=== PATIENT | female | born 1970 | race Caucasian/White ===

== ENCOUNTER → 2017-07-16 | Outpatient (CLI) | payer BC ==
[~2017-07-16] MED LIST: AMOX500C3 PO; CTF50 PO; DICL100T PO; EFFSR75 PO; ESZO1TAB20 PO; GLC500; PRT/40 PO; VALA1TAB31 PO; VENL1CAP92 PO
--- NOTE | 2017-07-16 12:55 | DIAGNOSTIC IMAGING REPORT ---
RENAL ULTRASOUND CLINICAL HISTORY: Lower back pain. Right flank pain. COMPARISON STUDY: Renal ultrasound May 19, [address] of the abdomen and pelvis February 22, 2015. TECHNIQUE: Sonography of the kidneys and the urinary bladder was performed. FINDINGS: The right kidney measures 11.1 cm in maximal dimension and the left measures 11.2 cm. There is no hydronephrosis. Note is again made of a 1.8 cm cyst within the right kidney. No calculi are identified by sonography. Both ureteral jets were identified. IMPRESSION: 1. No hydronephrosis. 2. 1.8 cm right renal cyst. Electronically signed by: López Brownlee M.D. 07/16/2017 12:54 PM Dictated Date/Time: 07/16/2017 12:52 PM
== END | disposition home or self-care (01) ==
LOC: C.ULTRBC 12:17
PROVIDERS: ATTEND Nurse Practitioner
DX: M54.5 Low back pain (principal); N28.1 Cyst of kidney, acquired

== ENCOUNTER 2017-08-28 20:08 | Emergency (ER) | payer BC ==
[~2017-08-28] VITALS: Ht 167.6 cm; Wt 92.7 kg
[~2017-08-28 20:08] MED LIST changes: -AMOX500C3 PO; -CTF50 PO; -EFFSR75 PO; -ESZO1TAB20 PO; -PRT/40 PO; -VALA1TAB31 PO
[2017-08-28 20:13] VITALS: TEMP 36.7; Ht 167.6 cm; Wt 92.7 kg
[2017-08-28] MEDS ORDERED: XYLOCAINE 1%/SOD BICARB 20 ML VIAL INFIL ONE (20:45)
[2017-08-28] MEDS ORDERED: DIPHTHERIA/TETANUS/PERTUSSIS 0.5 ML SYR/VIAL IM. ONE (20:45)
[2017-08-28] MEDS ORDERED: EFFSR75 PO (21:02)
[2017-08-28] MEDS ORDERED: PRT/40 PO (21:02)
[2017-08-28] MEDS ORDERED: CTF50 PO (21:02)
[2017-08-28] MEDS ORDERED: AMOX500C3 PO (21:02)
[2017-08-28] MEDS ORDERED: VALA1TAB31 PO (21:02)
[2017-08-28] MEDS ORDERED: ESZO1TAB20 PO (21:02)
--- NOTE | 2017-08-28 21:02 | DIAGNOSTIC IMAGING REPORT ---
L FINGER(S) MIN 2 VIEWS ROUTINE HISTORY: 47 years-old Female L index finger lac/hammer blunt force trauma acute left second finger laceration status post trauma. COMPARISON: None available TECHNIQUE: 3 views of the left second finger. FINDINGS: There is mild soft tissue swelling of the second digit without acute fracture, dislocation or opaque foreign body. Focal skin defect along the volar aspect of the digit at the level of the DIP joint suggests laceration. No significant degenerative changes. IMPRESSION: Mild soft tissue swelling without acute bony abnormality or opaque foreign body. The above report was generated using voice recognition software. It may contain grammatical, syntax or spelling errors. Electronically signed by: Pradip Hurt M.D. 08/28/2017 9:00 PM Dictated Date/Time: 08/28/2017 8:58 PM
[2017-08-28 21:53] VITALS: BP 121/81; PULSE 62; O2SAT 96
--- NOTE | 2017-08-28 23:10 | EMERGENCY ROOM VISIT NOTE ---
History First contact with patient: 20:25 Chief Complaint: LACERATION/CUT (SUT/DERMABOND) Stated Complaint: LACERATION TO LEFT HAND, 2ND DIGIT Nursing Triage Summary: pt c/o lac to left index finger, cut it on a hammer and a nail History of Present Illness The patient is a 47 year old female who presents to the Emergency Room with complaints of a laceration to her left index finger after hitting her hand with a hammer. The patient denies any pain extending into the hand or wrist region. The patient is [id number], and rates her discomfort a 1 out of 10. Tetanus immunization is unknown. Review of Systems 10 system review was performed and was negative except for pertinent positives and negatives as indicated in history of present illness Past Medical/Surgical History Medical Problems: (1) Kidney stone (2) UTI (urinary tract infection) Family History Cancer Marfan's syndrome Social History Smoking Status: Never Smoker Alcohol Use: none Marital Status: Housing Status: lives with family Occupation Status: employed Current/Historical Medications Scheduled Amoxicillin (Amoxil), 500 MG PO TID Eszopiclone (Eszopiclone), 2 MG PO HS Pantoprazole (Pantoprazole Sodium), 40 MG PO DAILY Valacyclovir Hcl (Valtrex), 1 GM PO TID Venlafaxine Hcl (Effexor Extended Rel), 75 MG PO DAILY Scheduled PRN Diclofenac Potassium (Diclofenac Potassium), 50 MG PO TID PRN for Pain Physical Exam Vital Signs Date Time Temp Pulse Resp B/P (MAP) Pulse Ox O2 Delivery O2 Flow Rate FiO2 08/28/17 21:53 62 18 121/81 96 08/28/17 20:13 36.7 62 18 123/73 97 Room Air Physical Exam CONSTITUTIONAL: Healthy and well nourished. Alert and oriented X 3 with positive affect. Patient does not appear in any acute distress. HEENT: Normocephalic, atraumatic. Pupils equal, round and reactive. NECK: Full active range of motion without discomfort. MUSCULOSKELETAL: Examination of the left index finger shows a 1 cm laceration over the volar DIP joint. The patient has difficulty with range of motion of the joints. There is mild to moderate edema. Nail plate is not involved. Collateral ligaments of the DIP and PIP joints are intact. Capillary refill is less than 2 seconds. INTEGUMENTARY: No rash or other significant dermatologic conditions noted. NEUROLOGIC: Left index fingertip is sensory intact. Medical Decision & Procedures ER Provider Diagnostic Interpretation: My interpretation of left index finger x-rays does not show any acute fractures or dislocation. Radiologist report is as follows: L FINGER(S) MIN 2 VIEWS ROUTINE HISTORY: 47 years-old Female L index finger lac/hammer blunt force trauma acute left second finger laceration status post trauma. COMPARISON: None available TECHNIQUE: 3 views of the left second finger. FINDINGS: There is mild soft tissue swelling of the second digit without acute fracture, dislocation or opaque foreign body. Focal skin defect along the volar aspect of the digit at the level of the DIP joint suggests laceration. No significant degenerative changes. IMPRESSION: Mild soft tissue swelling without acute bony abnormality or opaque foreign body. Medications Administered Medications (Trade) Dose Ordered Sig/Telma Route Start Time Stop Time Status Last Admin Dose Admin Diphtheria/ Pertussis/Tetanus Vacc (Adacel Inj) 0.5 ml ONCE ONCE IM. 08/28/17 20:45 08/28/17 20:46 DC 08/28/17 20:56 0.5 ML Procedure Laceration repair was performed under digital block anesthesia after receiving verbal consent from the patient. Using buffered 1% lidocaine without epinephrine, good digital block anesthesia was administered. The wound was then peripherally cleansed with iodine, then copiously pressure irrigated with normal saline. Exploration of the wound does not show any obvious injury or exposure to the underlying bone, joint capsule or tendons. The wound was then approximated using 5-0 nylon simple interrupted sutures. A bacitracin dressing was applied. The patient does have full flexor effort against resistance. ED Course Patient history and physical exam were performed. Nurse's notes were reviewed. Vital signs were reviewed and normal. The patient refused any analgesics. The patient was administered Adacel IM. X-rays of the left index finger were normal. Laceration repair was performed under digital block anesthesia. The patient was provided additional verbal and written wound care instructions. Ice and elevation for swelling. Ibuprofen and Tylenol as needed for pain. Suture removal in 12-14 days, or seek reevaluation sooner for any signs of infection. She was encouraged to contact orthopedics if she has persistent stiffness or noticeable weakness of flexor function of the finger, which is not present under digital block anesthesia. The patient was happy with plan of care , and voiced understanding of all discharge instructions. She denied any pain at the time of discharge. Medical Decision Medication Reconcilliation Current Medication List: was personally reviewed by me Blood Pressure Screening Patient's blood pressure: Normal blood pressure Impression Primary Impression: Laceration of left index finger Departure Information Referrals Janel Vick D.OSheron (PCP) Patient Instructions My [facility] Problem Qualifiers Primary Impression: Laceration of left index finger Encounter type: initial encounter Damage to nail status: without damage Foreign body presence: without foreign body Qualified Codes: S61.211A - Laceration without foreign body of left index finger without damage to nail, initial encounter
== END 2017-08-28 21:53 | disposition home or self-care (01) ==
LOC: C.EDB 20:09 → C.EDD 21:53
DX: S61.211A Laceration without foreign body of left index finger without damage to nail, initial encounter (principal); W27.8XXA Contact with other nonpowered hand tool, initial encounter

== ENCOUNTER → 2017-10-29 | Outpatient (CLI) | payer BC ==
[~2017-10-29] MED LIST changes: +AMOX500C3 PO; +CTF50 PO; -DICL100T PO; +EFFSR75 PO; +ESZO1TAB20 PO; -GLC500; +PANT40TA2 PO; +VALA1TAB31 PO; -VENL1CAP92 PO
--- NOTE | 2017-10-29 12:36 | DIAGNOSTIC IMAGING REPORT ---
MRI LEFT KNEE NO CONTRAST CLINICAL HISTORY: Left knee pain. History of psoriatic and osteoarthritis. COMPARISON STUDY: No previous studies for comparison. FINDINGS: Imaging was performed in the sagittal, coronal, and axial planes. There are no areas of marrow edema to indicate occult fracture or bone bruise. There is a small area of marrow edema beneath the level of the tibial spines. The patellar retinacular structures appear intact. The quadriceps and patellar tendons appear intact. The medial and lateral collateral ligaments appear intact. No meniscal tears are visualized. There is marked chondrosis involving the medial joint compartment. There is cartilaginous thinning involving the medial patellar facet. There is mild diffuse soft tissue edema. There is possible synovial hypertrophy. IMPRESSION: 1. No evidence of acute fracture or bone bruise 2. No evidence of cruciate or collateral ligament disruption 3. No evidence of meniscal tear 4. Marked chondrosis involving the medial joint compartment. Chondrosis involving the medial patellar facet. 5. Possible synovial hypertrophy Electronically signed by: Tom Paul M.D. 10/29/2017 12:34 PM Dictated Date/Time: 10/29/2017 12:27 PM
== END | disposition home or self-care (01) ==
LOC: C.MRI 11:07
PROVIDERS: ATTEND Family Medicine
DX: M25.562 Pain in left knee (principal); M11.262 Other chondrocalcinosis, left knee

== ENCOUNTER 2018-03-28 06:01 | Observation (INO) | payer BC ==
[2018-03-14 09:12] VITALS: BMI 33.0
--- NOTE | 2018-03-14 09:59 | PAT Medication Instructions ---
Service Date Mar 14, 2018. Current Home Medication List Acetaminophen (Tylenol), 1,000 MG PO PRN Aspirin (Aspirin Ec), 162 MG PO PRN Diclofenac Potassium (Diclofenac Potassium), 50 MG PO TID Eszopiclone (Lunesta), 2 MG PO HS Ibuprofen (Advil), 800 MG PO Q6H PRN for PRN Leflunomide (Arava), 10 MG PO QAM Oxycodone Ir (Roxicodone Ir), 5 MG PO Q4-6H Pantoprazole (Protonix), 20 MG PO HS Valacyclovir Hcl (Valtrex), 1 GM PO TID PRN for PRN Venlafaxine Hcl (Effexor Extended Rel), 75 MG PO HS Medication Instructions For Your Scheduled Surgery -Check with your surgeon for instructions: Aspirin (Aspirin Ec), 162 MG PO PRN Diclofenac Potassium (Diclofenac Potassium), 50 MG PO TID Ibuprofen (Advil), 800 MG PO Q6H PRN for PRN -Check with your prescriber for instructions for: Leflunomide (Arava), 10 MG PO QAM - Take the following medications the morning of surgery with a sip of water: Acetaminophen (Tylenol), 1,000 MG PO PRN (if needed, can be taken up to four hours before surgery) Oxycodone Ir (Roxicodone Ir), 5 MG PO Q4-6H (if needed, can be taken up to four hours before surgery) Valacyclovir Hcl (Valtrex), 1 GM PO TID PRN for PRN (if needed) - Take the following medications as scheduled the night before surgery: Acetaminophen (Tylenol), 1,000 MG PO PRN (if needed) Eszopiclone (Lunesta), 2 MG PO HS Oxycodone Ir (Roxicodone Ir), 5 MG PO Q4-6H (if needed) Pantoprazole (Protonix), 20 MG PO HS Valacyclovir Hcl (Valtrex), 1 GM PO TID PRN for PRN (if needed) Venlafaxine Hcl (Effexor Extended Rel), 75 MG PO HS If you have any questions please call us at [phone] or [phone] or [phone]
[2018-03-14 10:52] LABS: CREATININE 0.91 mg/dl (0.60-1.20); POTASSIUM 4.1 mmol/L (3.5-5.1)
--- NOTE | 2018-03-14 10:59 | DIAGNOSTIC IMAGING REPORT ---
CHEST 2 VIEWS ROUTINE CLINICAL HISTORY: Preoperative chest COMPARISON STUDY: No previous studies for comparison. FINDINGS: The cardiac and mediastinal contours are normal. There is no evidence of focal pulmonary consolidation. There is no evidence of failure. No pleural effusions are visualized.[ IMPRESSION: No active disease in the chest. Electronically signed by: Tom Paul M.D. 03/14/2018 10:58 AM Dictated Date/Time: 03/14/2018 10:58 AM
[2018-03-14 11:02] LABS: HEMATOCRIT 42.8 % (37-47); HEMOGLOBIN 14.7 g/dL (12.0-16.0); MEAN CELL VOLUME 87.3 fL (80-100); MEAN CORPUSCULAR HGB CONC 34.3 g/dl (32-36); MEAN PLATELET VOLUME 10.9 fL (7.4-10.4); PLATELET COUNT 259 K/uL (130-400); RED CELL DISTRIBUTION WIDTH CV 13.3 % (11.5-14.5); RED CELL DISTRIBUTION WIDTH SD 42.4 fL (36.4-46.3); WHITE BLOOD COUNT 5.92 K/uL (4.8-10.8)
[2018-03-14 11:05] LABS: BASO % 0.8 %; BASO ABS # 0.05 K/uL (0-0.2); EOS ABS # 0.12 K/uL (0-0.5); IG# 0.02 K/uL (0.00-0.02); LYMPH % 40.4 %; LYMPH ABS # 2.39 K/uL (1.2-3.4); MONO % 7.6 %; MONO ABS # 0.45 K/uL (0.11-0.59); NEUT % 48.9 %; NEUT ABS # 2.89 K/uL (1.4-6.5)
[~2018-03-28] VITALS: Ht 167.6 cm; Wt 93.0 kg
[2018-03-28] VITALS (17 sets, daily range): BP systolic 96–150; BP diastolic 62–81; PULSE 48–70; TEMP 36.4–36.7; O2SAT 95–100; Ht 167.6 cm; Wt 93.0 kg
[~2018-03-28 06:01] MED LIST changes: +ACET-1256 PO; +ACETAMINOPHEN 500 MG TAB PO SCH; -AMOX500C3 PO; +ASPI81TA28 PO; +CEFAZOLIN 2000MG IV PUSH 15 ML IV SCH; +CeleBREX 200 MG CAP PO SCH; +ESZO1TAB16 PO; -ESZO1TAB20 PO; +GABAPENTIN 900 MG PO SCH; +IBUP-1050 PO; +LACTATED RINGER'S 1000ML 1,000 ML IV SCH; +LEFL10TA PO; +OXYC1TAB3 PO; -PANT40TA2 PO; +PRT/20 PO
[2018-03-28] MEDS ORDERED: ASPI81TA28 PO (06:16)
[2018-03-28] MEDS ORDERED: BACITRACIN 50000 UNIT VIAL ONE (06:55)
[2018-03-28] MEDS ORDERED: DEXAMETHASONE SOD INJ 4 MG/ML VIAL ONE (06:56)
[2018-03-28] MEDS ORDERED: PROPOFOL IV EMULSION 10 MG/ML 20 ML VIAL ONE (06:56)
[2018-03-28] MEDS ORDERED: ONDANSETRON INJ 2 MG/ML 2 ML VIAL ONE (06:56)
[2018-03-28] MEDS ORDERED: FENTANYL CITRATE INJ 50 MCG/1 ML 2 ML VIAL ONE (06:57)
[2018-03-28] MEDS ORDERED: MIDAZOLAM HCL 1 MG/ML 2ML VIAL ONE (06:57)
--- NOTE | 2018-03-28 07:29 | History & Physical Bridge Note ---
H&P Re-Evaluation Bridge Note: I have examined the patient, reviewed the History & Physical and in the interval since the performance of the History & Physical I have noted the following changes of clinical significance: No changes noted
--- NOTE | 2018-03-28 07:31 | History and Physical ---
History & Physical Date March 28, 2018. Chief Complaint Neck and arm pain History of Present Illness The patient is a 48 year old female with complaints of neck and arm pain Past Medical/Surgical History Medical Problems: (1) Kidney stone (2) UTI (urinary tract infection) Additional History Hepatic Disease: No Endocrine Disorder: No Kidney Disease: No Hypertension: No Heart Disease: No Bleeding Tendencies: No Infectious Diseases: No Allergies Coded Allergies: Levofloxacin (Unverified Allergy, Unknown, ANAPHYLAXIS, 03/28/18) Nickel (Verified Allergy, Unknown, WATER BLISTERS,RED RASH-ALL METALS EXCEPT SILVER,GOLD, 03/28/18) Home Medications Scheduled Acetaminophen (Tylenol), 1,000 MG PO PRN Aspirin (Aspirin Ec), 81 MG PO DAILY Diclofenac Potassium (Diclofenac Potassium), 50 MG PO TID Eszopiclone (Lunesta), 2 MG PO HS Leflunomide (Arava), 10 MG PO QAM Pantoprazole (Protonix), 20 MG PO HS Venlafaxine Hcl (Effexor Extended Rel), 75 MG PO HS Scheduled PRN Ibuprofen (Advil), 800 MG PO Q6H PRN for PRN Oxycodone Ir (Roxicodone Ir), 5 MG PO Q4-6H PRN for Pain Valacyclovir Hcl (Valtrex), 1 GM PO TID PRN for PRN Physical Examination Skin: warm/dry, no rash Eyes: normal inspection, EOMI, sclerae normal ENT: normal ENT inspection, pharynx normal Head: normocephalic, atraumatic Neck: supple, no adenopathy, trachea midline Respiratory/Chest: lungs clear, normal breath sounds, no respiratory distress Cardiovascular: regular rate, rhythm, no edema, no murmur Abdomen / GI: normal bowel sounds, non tender Back: normal inspection Extremities: normal inspection, normal range of motion Neurologic/Psych: no motor/sensory deficits, alert, normal reflexes, oriented x 3 Diagnosis Cervical spinal stenosis Plan of Treatment ACDF C5-6
[2018-03-28] MEDS ORDERED: LABETALOL HCL IV 5 MG/ML 20ML IV PRN (08:15)
[2018-03-28] MEDS ORDERED: PROMETHAZINE HCL INJ 12.5 MG in SODIUM CHLORIDE 0.9% 50ML 50 ML IV PRN (08:15)
[2018-03-28] MEDS ORDERED: ONDANSETRON INJ 2 MG/ML 2 ML VIAL IV PRN ×2 (08:15→10:00)
[2018-03-28] MEDS ORDERED: ATROPINE SULFATE 0.1 MG/ML 5ML SYR IV PRN (08:15)
[2018-03-28] MEDS ORDERED: HYDROmorphone INJ 2 MG/ML SYR/VIAL IV PRN (08:15)
[2018-03-28] MEDS ORDERED: FLOSEAL HEMOSTATIC MATRIX 10ML TOP ONE (08:54)
[2018-03-28] MEDS ORDERED: ROCURONIUM BROMIDE 10 MG/ML 5 ML VIAL ONE (08:57)
[2018-03-28] MEDS ORDERED: NEOSTIGMINE METHYLSULFATE 1 MG/ML 10ML VIAL ONE (08:57)
[2018-03-28] MEDS ORDERED: GLYCOPYRROLATE INJ 0.2 MG/ML VIAL ONE (08:57)
--- NOTE | 2018-03-28 09:03 | [facility] Operative Report ---
Operative Report Operative Date March 28, 2018. Pre-Operative Diagnosis Cervical spinal stenosis with myeloradiculopathy Post-Operative Diagnosis Same as preop Procedure(s) Performed 1. Anterior cervical discectomy bilateral foraminotomies C5-6. 2 anterior cervical arthrodesis C5-6. #3 placement of cortical allograft filled with DBM 7 mm in height C5-6. #4 application of globus cervical plate C5-C6. Surgeon Dr. Ra Seals Relay Tester Surgeon(s) Yudith Puente PA-C Estimated Blood Loss 50 ml Findings Severe spinal stenosis Specimens none Anesthesia Type General Description of Procedure Patient was met with preoperatively case discussed all questions addressed. After informed consent obtained patient was taken to the operative suite underwent intubation placed in the supine position the head Alfaro head of history. All bony prominences well-padded eyes inspected to ensure no external pressure placed upon. This point the anterior cervical spine was prepped and draped in normal sterile fashion. With the assistance of fluoroscopy identified the C5-6 disc space. A transverse incision was then placed along the right anterior aspect of the cervical spine overlying this region. Sharp dissection with the assistance of bipolar electrocautery was performed down to and exposing the anterior cervical spine at C5-6. I verified my position with fluoroscopy. Then performed a complete discectomy of C5-6 up to the uncovertebral joints bilaterally. [place] distracting pins were utilized to assist in visualization. Removed all posterior annular fibers longitudinal ligament and bilateral foraminotomies performed. Endplates burred to subcortical bleeding bone and a 7 mm cortical allograft filled DBM tapped in position. Distracting apparatus was removed all anterior osteophytes burred to a smooth cortical surface and a globus plate and screws applied with the assistance of fluoroscopy. The incision was then copiously irrigated explored to ensure there is no damage to surrounding structures or remaining bleeding a 10 round THAO drain inserted. Incision was then closed with 2 Vicryl in a fashion of 4 Monocryl for fashion closure Steri-Strips sterile dressings placed. Patient weakened taken PACU stable condition. Please note Yudith Devries was present throughout the entire procedure involved in patient positioning complex portions of the surgery and fashion closure. I attest to the content of the Intraoperative Record and any orders documented therein. Any exceptions are noted below.
--- NOTE | 2018-03-28 09:41 | DIAGNOSTIC IMAGING REPORT ---
CERVICAL 2 OR 3 VIEWS CLINICAL HISTORY: 48 years-old Female presenting with C5-C6 ACDF. TECHNIQUE: 3 fluoroscopic image(s) recorded as part of an intraoperative procedure. COMPARISON: None. FINDINGS/IMPRESSION: Anterior cervical discectomy and fusion of C5-6. Straightening of normal cervical lordosis. An endotracheal tube and surgical sponge project over the prevertebral soft tissues. Please see surgical report for further details. Fluoroscopy dosage (mGy): 4.19. Fluoroscopy time: 14.9 seconds. Number of fluoroscopic spot images: 5.8 seconds. Electronically signed by: Foreign Bermudez M.D. 03/28/2018 9:40 AM Dictated Date/Time: 03/28/2018 9:39 AM
[2018-03-28] MEDS ORDERED: HYDROmorphone INJ 0.5 MG/0.5 ML SYR ONE (09:49)
[2018-03-28] MEDS ORDERED: DO NOT ADMINISTER FLU VACCINE PRN (10:00)
[2018-03-28] MEDS ORDERED: DO NOT ADMINISTER PNEUMOCOCCAL VACCINE PRN (10:00)
[2018-03-28] MEDS ORDERED: RACEPINEPHRINE 2.25% NEBU SOLN 0.5 ML VIAL INH PRN (10:00)
[2018-03-28] MEDS ORDERED: DEXAMETHASONE INJ 8 MG in SYRINGE 0 ML IV PRN (10:00)
[2018-03-28] MEDS ORDERED: CEFAZOLIN IV 1,000 MG in DEXTROSE 5% 50ML 50 ML IV SCH (10:00)
[2018-03-28] MEDS ORDERED: NALOXONE HCL 0.4 MG/1 ML VIAL/CARP IV PRN (10:00)
[2018-03-28] MEDS ORDERED: LORAZEPAM INJ 0.5 MG in SYRINGE 0.75 ML IV PRN (10:00)
[2018-03-28] MEDS ORDERED: LORAZEPAM 0.5 MG TAB PO PRN (10:00)
[2018-03-28] MEDS ORDERED: SCOPOLAMINE 1.5 MG TDSY TD SCH (10:00)
[2018-03-28] MEDS ORDERED: MAGNESIUM HYDROXIDE SUSP 30 ML UDC PO PRN (10:00)
[2018-03-28] MEDS ORDERED: ACETAMINOPHEN IV 100 ML IV PRN (10:00)
[2018-03-28] MEDS ORDERED: DiphenhydrAMINE HCL 50 MG/ML VIAL IV PRN (10:00)
--- NOTE | 2018-03-28 10:45 | Anesthesiology Progress Note ---
Anesthesia Post Op Note Date & Time March 28, 2018 at 10:44 Vital Signs Vital Signs Past 12 Hours Date Time Temp Pulse Resp B/P (MAP) Pulse Ox O2 Delivery O2 Flow Rate FiO2 03/28/18 10:35 55 12 132/69 99 Nasal Cannula 4 03/28/18 10:25 55 12 132/68 99 Nasal Cannula 4 03/28/18 10:15 58 12 137/86 100 Nasal Cannula 4 03/28/18 10:05 36.4 53 12 140/68 100 Nasal Cannula 4 03/28/18 09:55 59 14 139/78 100 Nasal Cannula 4 03/28/18 09:45 57 14 146/82 100 Nasal Cannula 4 03/28/18 09:35 59 12 145/77 100 Oxymask 10 03/28/18 09:25 71 16 149/63 100 Oxymask 10 03/28/18 09:16 36.6 81 12 146/88 100 Oxymask 10 03/28/18 06:23 36.4 70 20 119/65 (83) 97 Room Air Notes Mental Status: alert / awake / arousable, participated in evaluation Pt Amnestic to Procedure: Yes Nausea / Vomiting: adequately controlled Pain: adequately controlled Airway Patency, RR, SpO2: stable & adequate BP & HR: stable & adequate Hydration State: stable & adequate Anesthetic Complications: no major complications apparent
[2018-03-28] MEDS ORDERED: RXC5 PO (12:04)
--- NOTE | 2018-03-28 12:05 | Discharge Instructions ---
Discharge Instructions Date of Service March 28, 2018. Admission Reason for Admission: Cervical Spinal Stenosis C5-6 Discharge Discharge Diagnosis / Problem: cervical stenosis Discharge Goals Goal(s): Improve function Activity Recommendations Activity Limitations: per Instructions/Follow-up section . Instructions / Follow-Up Instructions / Follow-Up ACTIVITY RECOMMENDATIONS: SELF CARE INSTRUCTIONS AFTER CERVICAL FUSIONS 1. No smoking. Smoking drastically decreases the chance of a solid fusion. 2. No bending, lifting more than 5 pounds, or twisting (roll like a log when turning in bed). 3. You may shower 3 days after surgery. Thoroughly dry wound. Do not soak in the tub. 4. Cervical collar: Must be worn at all times including sleeping. You may remove the brace only to bath, eat and if you are sitting in a recliner. 5. Please walk as much as you can for exercise. Gradually increase the distance that you walk as your endurance increases. SPECIAL CARE INSTRUCTIONS: VERY IMPORTANT TO READ AND REVIEW A. Do not take any anti-inflammatory medications (i.e. Indocin, Advil, Aspirin, Naprosyn, Aleve, Motrin, etc.) as these may inhibit the chance of a solid fusion. Tylenol is okay to take. B. Your surgical incision has been closed with a cosmetic suture under the skin that will dissolve in about 6 weeks. In 14 days, you can use a pair of clean scissors and cut the suture that is left outside of the skin at the ends of your incision. C. Complications are uncommon, but please contact us if you have any signs or symptoms of: 1. wound infection (fever higher than 102.5 degrees F, redness, separation of wound, drainage, or increasing pain from the incision) 2. blood clots in legs (pain, swelling, redness and warmth in legs) 3. urinary tract infection (fever higher than 102.5 degrees, burning upon urination or increased frequency of urination) 4. nerve problems (inability to walk on your toes or heels, numbness, loss of bowel or bladder control) 5. any other symptoms that concern you. D. Please call the office at if you have any concerns or questions about your operation or recovery. MANAGING PAIN AFTER SPINAL SURGERY 1. Narcotic medication is intended for short-term use and will be provided for surgical pain. Surgical pain usually lasts for a period of 4-6 weeks. Narcotic medication includes Percocet, Vicodin, Darvocet, Tylenol #3 or Lortab. 2. Longer-term pain is more appropriately treated with non-narcotic medication such as Tylenol ES. 3. Muscle spasm is not appropriately treated with narcotics. Muscle relaxers such as Soma, Flexeril or Skelaxin can be used along with Tylenol ES. 4. Remember that we all live with some "aches and pains". This is not unusual or uncommon after an injury or as we get older. 5. We will provide appropriate medication within the normal guidelines of their prescribed use. We will also be very cautious and aware of potential abuse and extended duration of patients' medication needs. 6. Please allow 2-3 days to process refills. Prescriptions will not be mailed but must be picked up at the office. FOLLOW UP VISIT: Keep your scheduled follow-up appointment. Any questions, please call the office at . Current Hospital Diet Patient's current hospital diet: Clear Liquid Diet Discharge Diet Recommended Diet: Regular Diet Procedures Procedures Performed: C5-6 Anterior Cervical Discectomy and Fusion; Allograft Pending Studies Studies pending at discharge: no Medical Emergencies . Who to Call and When: Medical Emergencies: If at any time you feel your situation is an emergency, please call 911 immediately. . Non-Emergent Contact Non-Emergency issues call your: Primary Care Provider . "Provider Documentation" section prepared by Ra Seals. .
[2018-03-28] MEDS ORDERED: IV FLUIDS COMPLETED PRN (12:15)
[2018-03-28] MEDS: LACTATED RINGER'S 1000ML 1,000 ML IV SCH (13:13)
[2018-03-28] MEDS: HYDROmorphone INJ 0.5 MG/0.5 ML SYR IV PRN (14:01)
[2018-03-28] MEDS: CEFAZOLIN IV 1,000 MG in SYRINGE 0 ML IV SCH (16:11)
[2018-03-28] MEDS: CHECK SCOPOLAMINE PATCH PLACEMENT SCH (16:14)
[2018-03-28] MEDS: OXYCODONE HCL IR 5 MG TAB (IMMEDIATE RELEASE) PO PRN (18:45)
[2018-03-28] MEDS ORDERED: NURSING DECISION MEDICATION ORDER SCH (20:00)
[2018-03-28] MEDS: DOCUSATE SODIUM 100 MG CAP PO SCH (20:10)
[2018-03-28] MEDS ORDERED: COUGH DROP (SUGAR FREE) LOZ 24 LOZ/1 BOX LOZ PRN (20:15)
[2018-03-28] MEDS ORDERED: ESZOPICLONE 1 MG TAB PO SCH (21:00)
[2018-03-28] MEDS ORDERED: PANTOprazole SOD 40 MG TAB PO SCH (21:00)
[2018-03-28] MEDS ORDERED: VENLAFAXINE HCL XR 75 MG CAPXR PO SCH (21:00)
[2018-03-28] MEDS ORDERED: NURSING VERBAL MED ORDER ONE (22:15)
[2018-03-28] MEDS ORDERED: TRAMADOL HCL 50 MG TAB PO PRN (22:30)
[2018-03-29] VITALS (9 sets, daily range): BP systolic 97–123; BP diastolic 63–75; PULSE 52–62; TEMP 36.4–36.6; O2SAT 94–100
[2018-03-29] MEDS: CEFAZOLIN IV 1,000 MG in SYRINGE 0 ML IV SCH ×2 (00:04→07:42)
[2018-03-29] MEDS: HYDROmorphone INJ 0.5 MG/0.5 ML SYR IV PRN ×2 (00:05→04:50)
[2018-03-29] MEDS: CHECK SCOPOLAMINE PATCH PLACEMENT SCH ×2 (00:24→07:42)
[2018-03-29] MEDS: LACTATED RINGER'S 1000ML 1,000 ML IV SCH (00:25)
[2018-03-29] MEDS ORDERED: ULT50X PO (07:37)
[2018-03-29] MEDS: OXYCODONE HCL IR 5 MG TAB (IMMEDIATE RELEASE) PO PRN (08:13)
[2018-03-29] MEDS: DOCUSATE SODIUM 100 MG CAP PO SCH (08:14)
--- NOTE | 2018-03-29 10:21 | Anesthesiology Progress Note ---
Anesthesia Post Op Note Date & Time March 29, 2018 at 10:20 Vital Signs Pain Intensity: 3.0 Vital Signs Past 12 Hours Date Time Temp Pulse Resp B/P (MAP) Pulse Ox O2 Delivery O2 Flow Rate FiO2 03/29/18 10:00 36.6 61 16 123/75 96 Room Air 03/29/18 08:00 36.5 57 16 118/71 95 Room Air 03/29/18 07:40 Room Air 03/29/18 07:14 58 18 94 Room Air 03/29/18 07:00 36.5 55 16 97/63 (74) 94 Room Air 03/29/18 06:03 36.6 62 18 106/71 96 Room Air 03/29/18 03:59 36.5 55 16 100/64 99 Nasal Cannula 2.0 03/29/18 03:22 52 18 98 Nasal Cannula 2.0 03/29/18 01:55 36.4 59 18 107/69 100 Nasal Cannula 2.0 03/28/18 23:51 36.4 59 16 117/72 96 Nasal Cannula 2.0 03/28/18 23:51 Nasal Cannula 2.0 03/28/18 23:50 56 18 98 Nasal Cannula 2.0 03/28/18 23:21 18 Notes Mental Status: alert / awake / arousable, participated in evaluation Pt Amnestic to Procedure: Yes Nausea / Vomiting: adequately controlled Pain: adequately controlled Airway Patency, RR, SpO2: stable & adequate BP & HR: stable & adequate Hydration State: stable & adequate Anesthetic Complications: no major complications apparent
--- NOTE | 2018-03-29 12:02 | Discharge Summary ---
Orthopedic Discharge Summary Admission Date/Reason March 28, 2018 at 09:58 Cervical Spinal Stenosis C5-6. Discharge Date/Disposition March 29, 2018 Home Diagnosis Principal Diagnosis: Cervical spinal stenosis Admission Physical Exam As per Admitting History & Physical. Hospital Course Patient underwent anterior cervical discectomy and fusion tolerated as well as taken to the orthopedic floor postoperatively. Postop day #1 she had improvement of her arm symptoms swallowing without difficulty. She had no hoarseness. Pain controlled. Subsequently she was discharged home. Discharge orders and instructions can be found in the chart for further review. Discharge Instructions Please refer to the electronic Patient Visit Report (Discharge Instructions) for additional information.
[2018-03-30] MEDS ORDERED: BISACODYL 10 MG SUPP PR PRN (06:00)
[2018-03-30] MEDS ORDERED: BISACODYL 5 MG TABEC PO PRN (06:00)
[2018-03-30] MEDS ORDERED: POLYETHYLENE (MIRALAX) 17 GM PACK PO SCH (09:00)
== END 2018-03-29 11:28 | disposition home or self-care (01) ==
LOC: C.ACU 06:01 → C.3E 09:58 → ENRESERV 10:12
PROVIDERS: ADMIT Orthopaedic Surgery Orthopaedic Surgery of the Spine; ATTEND Orthopaedic Surgery Orthopaedic Surgery of the Spine
DX: M48.02 Spinal stenosis, cervical region (principal); M54.12 Radiculopathy, cervical region; Z87.442 Personal history of urinary calculi; Z87.440 Personal history of urinary (tract) infections; Z79.82 Long term (current) use of aspirin; K21.9 Gastro-esophageal reflux disease without esophagitis; M19.90 Unspecified osteoarthritis, unspecified site; E66.9 Obesity, unspecified; Z88.1 Allergy status to other antibiotic agents

== ENCOUNTER 2018-04-01 15:22 | Emergency (ER) | payer BC ==
[~2018-04-01] VITALS: Ht 167.6 cm; Wt 94.1 kg
[~2018-04-01 15:22] MED LIST changes: -ESZO1TAB18 PO; -LVNIS150 SQ; -TRAM-10 PO; -WARF5TAB90 PO
[2018-04-01 15:26] VITALS: TEMP 36.7; Ht 167.6 cm; Wt 94.1 kg
[2018-04-01] MEDS ORDERED: TRAM-10 PO (15:44)
[2018-04-01] MEDS ORDERED: ESZO1TAB18 PO (15:51)
[2018-04-01 16:07] LABS: BASO % 0.4 %; BASO ABS # 0.04 K/uL (0-0.2); EOS % 1.6 %; EOS ABS # 0.15 K/uL (0-0.5); HEMOGLOBIN 14.1 g/dL (12.0-16.0); IG# 0.04 K/uL (0.00-0.02); LYMPH % 20.4 %; LYMPH ABS # 1.93 K/uL (1.2-3.4); MEAN CELL VOLUME 86.7 fL (80-100); MEAN CORPUSCULAR HEMOGLOBIN 29.8 pg (25-34); MEAN CORPUSCULAR HGB CONC 34.4 g/dl (32-36); MONO % 6.1 %; MONO ABS # 0.58 K/uL (0.11-0.59); NEUT % 71.1 %; NEUT ABS # 6.72 K/uL (1.4-6.5); PLATELET COUNT 244 K/uL (130-400); RED CELL DISTRIBUTION WIDTH SD 41.4 fL (36.4-46.3); WHITE BLOOD COUNT 9.46 K/uL (4.8-10.8)
[2018-04-01] MEDS ORDERED: ENOXAPARIN 150 MG/1ML SYR SQ STA (16:20)
[2018-04-01 16:27] LABS: CALCIUM 8.9 mg/dl (8.5-10.1); CREATININE 0.86 mg/dl (0.60-1.20)
[2018-04-01] MEDS ORDERED: WARF5TAB90 PO (16:27)
[2018-04-01] MEDS ORDERED: LVNIS150 SQ (16:27)
[2018-04-01] MEDS ORDERED: WARFARIN SOD 5 MG TAB PO ONE (16:30)
[2018-04-01] MEDS ORDERED: LOVENOX TEACHING KIT PRN (16:30)
[2018-04-01 16:41] VITALS: BP 121/75; PULSE 74; O2SAT 96
[2018-04-01 16:50] LABS: PTT PATIENT 26.1 SECONDS (21.0-31.0)
--- NOTE | 2018-04-01 17:38 | EMERGENCY ROOM VISIT NOTE ---
History Report prepared by Dragan: Sánchez Sánchez Under the Supervision of: Dr. Ace Mcdonald D.O. First contact with patient: 15:29 Chief Complaint: KNEEPAIN Stated Complaint: PAIN IN LEFT CALF & BEHIND KNEE History of Present Illness The patient is a 48 year old female who presents to the Emergency Room with complaints of constant left knee pain beginning two days ago. The patient states that she woke up two days ago with leg pain that felt like a pain that one would get after having a cramp. She notes that she had an US done today and was told that she had a blood clot behind her left knee, prompting her to come to the emergency department today. She denies any headache, change in vision, fevers, chest pain, shortness of breath, nausea, vomiting, hematemesis, hemoptysis, diarrhea, pain with urination, and melena. She reports that she had C5-C6 back surgery done four days ago. The patient states that she does not have a history of brain bleeds. She notes that she has a family history of blood clots. She reports that she takes aspirin daily. She rates her pain as a 6 /10. Source of History: patient Onset: two days ago Position: knee (left) Symptom Intensity: 6/10 Timing: constant Associated Symptoms: No fevers, No headache, No chest pain, No SOB, No nausea, No vomiting, No melena, No diarrhea, No urinary symptoms Note: The patient also denies any change in vision, hematemesis, and hemoptysis. Review of Systems See HPI for pertinent positives & negatives. A total of 10 systems reviewed and were otherwise negative. Past Medical & Surgical Medical Problems: (1) Cervical stenosis of spinal canal (2) Kidney stone (3) UTI (urinary tract infection) Family History Blood clots Cancer Marfan's syndrome Social History Smoking Status: Former Smoker Alcohol Use: none Marital Status: Housing Status: lives with family Occupation Status: employed Current/Historical Medications Scheduled Acetaminophen (Tylenol), 1,000 MG PO PRN Aspirin (Aspirin Ec), 81 MG PO DAILY Enoxaparin (Lovenox), 0.9 ML SQ DAILY Eszopiclone (Lunesta), 2 MG PO HS Leflunomide (Arava), 10 MG PO QAM Pantoprazole (Protonix), 20 MG PO HS Venlafaxine Hcl (Effexor Extended Rel), 75 MG PO HS Warfarin Sodium (Coumadin), 1 TAB PO DAILY Scheduled PRN Oxycodone Ir (Roxicodone Ir), 5-10 MG PO Q4-6H PRN for Pain Tramadol (Ultram), 50 MG PO Q4H PRN for Pain Valacyclovir Hcl (Valtrex), 1 GM PO TID PRN for PRN Allergies Coded Allergies: Levofloxacin (Verified Allergy, Severe, ANAPHYLAXIS, 04/01/18) Uncoded Allergies: CHEAP METALS (Allergy, Intermediate, "WATERY" BLISTERS, RED RASH, 04/01/18) Physical Exam Vital Signs Date Time Temp Pulse Resp B/P (MAP) Pulse Ox O2 Delivery O2 Flow Rate FiO2 04/01/18 16:41 74 18 121/75 96 Room Air 04/01/18 15:26 36.7 85 20 126/80 95 Room Air Physical Exam GENERAL: Sitting up in bed with cervical collar in place, dressing on anterior neck are clean, patient is alert, well appearing, well nourished, no distress, non-toxic EYE EXAM: normal conjunctiva. OROPHARYNX: no exudate, no erythema, lips, buccal mucosa, and tongue normal and mucous membranes are moist NECK: supple, no nuchal rigidity, no adenopathy, non-tender LUNGS: Clear to auscultation. Normal chest wall mechanics HEART: no murmurs, S1 normal and S2 normal ABDOMEN: abdomen soft, non-tender, normo-active bowel sounds, no masses, no rebound or guarding. BACK: Back is symmetrical on inspection and there is no deformity, no midline tenderness, no CVA tenderness. SKIN: no rashes and no bruising UPPER EXTREMITIES: upper extremities are grossly normal. LOWER EXTREMITIES: No pitting edema, left calf slightly larger than right. NEURO EXAM: Normal sensorium, cranial nerves II-XII grossly intact, normal speech, no gross weakness of arms, no gross weakness of legs. Medical Decision & Procedures Laboratory Results 04/01/18 15:50 Red Blood Count 4.73, Mean Corpuscular Volume 86.7, Mean Corpuscular Hemoglobin 29.8, Mean Corpuscular Hemoglobin Concent 34.4, Mean Platelet Volume 10.0, Neutrophils (%) (Auto) 71.1, Lymphocytes (%) (Auto) 20.4, Monocytes (%) (Auto) 6.1, Eosinophils (%) (Auto) 1.6, Basophils (%) (Auto) 0.4, Neutrophils # (Auto) 6.72, Lymphocytes # (Auto) 1.93, Monocytes # (Auto) 0.58, Eosinophils # (Auto) 0.15, Basophils # (Auto) 0.04 04/01/18 15:50 Test 04/01/18 15:50 White Blood Count 9.46 K/uL (4.8-10.8) Red Blood Count 4.73 M/uL (4.2-5.4) Hemoglobin 14.1 g/dL (12.0-16.0) Hematocrit 41.0 % (37-47) Mean Corpuscular Volume 86.7 fL (80-100) Mean Corpuscular Hemoglobin 29.8 pg (25-34) Mean Corpuscular Hemoglobin Concent 34.4 g/dl (32-36) Platelet Count 244 K/uL (130-400) Mean Platelet Volume 10.0 fL (7.4-10.4) Neutrophils (%) (Auto) 71.1 % Lymphocytes (%) (Auto) 20.4 % Monocytes (%) (Auto) 6.1 % Eosinophils (%) (Auto) 1.6 % Basophils (%) (Auto) 0.4 % Neutrophils # (Auto) 6.72 K/uL (1.4-6.5) Lymphocytes # (Auto) 1.93 K/uL (1.2-3.4) Monocytes # (Auto) 0.58 K/uL (0.11-0.59) Eosinophils # (Auto) 0.15 K/uL (0-0.5) Basophils # (Auto) 0.04 K/uL (0-0.2) RDW Standard Deviation 41.4 fL (36.4-46.3) RDW Coefficient of Variation 13.0 % (11.5-14.5) Immature Granulocyte % (Auto) 0.4 % Immature Granulocyte # (Auto) 0.04 K/uL (0.00-0.02) Prothrombin Time 10.1 SECONDS (9.0-12.0) Prothromb Time International Ratio 1.0 (0.9-1.1) Activated Partial Thromboplast Time 26.1 SECONDS (21.0-31.0) Partial Thromboplastin Ratio 1.0 Anion Gap 6.0 mmol/L (3-11) Est Creatinine Clear Calc Drug Dose 93.4 ml/min Estimated GFR () 93.2 Estimated GFR (Non- 80.4 BUN/Creatinine Ratio 7.4 (10-20) Calcium Level 8.9 mg/dl (8.5-10.1) Laboratory results per my review. Medications Administered Medications (Trade) Dose Ordered Sig/Telma Route Start Time Stop Time Status Last Admin Dose Admin Warfarin Sodium (Coumadin Tab) 5 mg NOW ONCE PO 04/01/18 16:30 04/01/18 16:31 DC 04/01/18 16:26 5 MG Miscellaneous (Lovenox Teaching Kit) 1 ea PRN PRN N/A 04/01/18 16:30 05/01/18 16:29 04/01/18 16:37 1 EA Enoxaparin Sodium (Lovenox Inj) 141 mg NOW STAT SQ 04/01/18 16:20 04/01/18 16:25 DC 04/01/18 16:37 141 MG ED Course ED COURSE: Vital signs were reviewed and were shown to be normal. The patients medical record was reviewed The above diagnostic studies were performed and reviewed. ED treatments and interventions as stated above. 1530: The patient was evaluated in room B4. A complete history and physical examination was performed. 1557: Discussed the patient's case with Dr. Seals - Orthopedic Surgery, [facility]. He suggests to give the patient Coumadin and Lovenox. 1608: Discussed the patient's case with Dr. Castro - Pathology. She recommends 5mg Coumadin daily and Lovenox 1.5mg/kg. 1618: I reevaluated and had an extensive conversation with the patient. 1620: Lovenox Inj 141mg SQ 1630: Coumadin Tab 5mg PO 1708: Upon reevaluation, the patient is stable. I discussed my findings with the patient and she understands and agrees with the treatment plan. Based on the patients age, coexisting illnesses, exam and lab findings the decision to treat as an outpatient was made. The patient remained stable while under my care. The patient appeared well at the time of discharge. Medical Decision Differential diagnosis: Etiologies such as DVT, musculoskeletal, infection, joint effusion, trauma, lymphedema, idiopathic, CHF, as well as others were entertained. Patient is a 48-year-old female that was referred in by her orthopedic team who was status post C5-C6 surgery this past Wednesday and was found to have a DVT in her left calf without anything more proximal. She denies any chest pain or shortness of breath. No other complaints. Discussed with her surgeon who recommended Coumadin and Lovenox. I discussed with Dr. Ndiaye who agreed with 1.5 mg/kg of Lovenox along with 5 mg daily of Coumadin until the patient is seen in the Coumadin clinic Wednesday. She has an appointment at 9 AM. CBC along with BMP was unremarkable along with PT and INR. Patient was educated by her pharmacist was discharged to follow-up with Coumadin clinic on Wednesday morning at 9 AM. She is given strict instructions for any hemoptysis, hematemesis, hematuria or trauma to return immediately to the ER. Discussed with Pt concerning signs and symptoms to watch out for. Pt was instructed to follow up with their PCP and discussed with the patient their option to return to the ED at anytime for persistent or worsening symptoms. The appropriate anticipatory guidance and out-patient management, including indications for return to the emergency department, were explained at length to the patient and understood. Medication Reconcilliation Current Medication List: was personally reviewed by me Blood Pressure Screening Patient's blood pressure: Normal blood pressure Blood pressure disposition: Did not require urgent referral Consults Time Called: 1550 Consulting Physician[facility] Returned Call: 1553 Discussed the patient's case [facility] He suggests to give the patient Coumadin and Lovenox. Additional Consults: Time Called: 1605 Consulted Physician: Dr. Castro - Pathology Returned Call: 1603 Additional Comments: Discussed the patient's case with Dr. Castro - [facility]. She recommends 5mg Coumadin daily and Lovenox 1.5mg/kg. Impression Primary Impression: DVT (deep venous thrombosis) Scribe Attestation The scribe's documentation has been prepared under my direction and personally reviewed by me in its entirety. I confirm that the note above accurately reflects all work, treatment, procedures, and medical decision making performed by me. Departure Information Dispostion Home / Self-Care Prescriptions Warfarin Sodium (COUMADIN) 5 Mg Tab 1 TAB PO DAILY for 20 Days, #20 TAB 0 Refills Prov: Ace Mcdonald, DO 04/01/18 Enoxaparin (LOVENOX) 150 Mg/1 Ml Inj 0.9 ML SQ DAILY for 7 Days Prov: Ace Mcdonald, DO 04/01/18 Referrals Janel Vick D.O. (PCP) Forms HOME CARE DOCUMENTATION FORM, IMPORTANT VISIT INFORMATION Patient Instructions [facility] Additional Instructions Please follow up with your primary care doctor in the next 24 hours. Any worsening of your symptoms, please return to the ED immediately. This includes any coughing up blood, vomiting blood, blood in your stool, urinating blood, trauma, falls, any head injury or any other concerning signs or symptoms from your standpoint. Again any trauma to head, falls coughing up blood, vomiting blood, but in your stool or blood in urine please return immediately to the ER. Please take Lovenox 0.9 mL's daily until he follow-up with the Coumadin clinic. Please follow-up with Coumadin clinic Wednesday morning at 9 AM. Please take Coumadin as prescribed. Problem Qualifiers Primary Impression: DVT (deep venous thrombosis) DVT location: lower extremity Affected thrombotic vein of extremity: unspecified vein of extremity Chronicity: acute Laterality: left Qualified Codes: I82.402 - Acute embolism and thrombosis of unspecified deep veins of left lower extremity
[2018-04-02] MEDS ORDERED: ENOXAPARIN 1.5 MG/KG SQ SCH (09:00)
== END 2018-04-01 17:03 | disposition home or self-care (01) ==
LOC: C.EDB 15:23
DX: I82.4Z2 Acute embolism and thrombosis of unspecified deep veins of left distal lower extremity (principal); Z82.49 Family history of ischemic heart disease and other diseases of the circulatory system; Z79.82 Long term (current) use of aspirin; Z88.1 Allergy status to other antibiotic agents; Z91.048 Other nonmedicinal substance allergy status; Z98.890 Other specified postprocedural states

== ENCOUNTER → 2018-04-01 | Outpatient (CLI) | payer BC ==
[~2018-04-01] MED LIST changes: -ACETAMINOPHEN 500 MG TAB PO SCH; -CEFAZOLIN 2000MG IV PUSH 15 ML IV SCH; -CTF50 PO; -CeleBREX 200 MG CAP PO SCH; +ESZO1TAB18 PO; -GABAPENTIN 900 MG PO SCH; -IBUP-1050 PO; -LACTATED RINGER'S 1000ML 1,000 ML IV SCH; +LVNIS150 SQ; +RXC5 PO; +TRAM-10 PO; +ULT50X PO; +WARF5TAB90 PO
--- NOTE | 2018-04-01 14:54 | DIAGNOSTIC IMAGING REPORT ---
ULTRASOUND L VENOUS DOPP LOWER EXT UNILAT CLINICAL HISTORY: LEFT LEG PAIN COMPARISON STUDY: No previous studies for comparison. FINDINGS: No thrombus is visualized in the common femoral, superficial femoral, or popliteal vein. The peroneal veins were noncompressible consistent with peroneal vein thrombus. The anterior tibial and posterior tibial veins appear patent as visualized. IMPRESSION: Acute calf DVT involving the peroneal veins. No evidence of [id number] thrombus Electronically signed by: Tom Paul M.D. 04/01/2018 2:53 PM Dictated Date/Time: 04/01/2018 2:52 PM
== END | disposition home or self-care (01) ==
LOC: C.ULTRBC 14:10
PROVIDERS: ATTEND Physician Assistant Medical
DX: I82.4Z2 Acute embolism and thrombosis of unspecified deep veins of left distal lower extremity (principal)

== ENCOUNTER → 2018-04-05 | Outpatient (CLI) | payer BC ==
[~2018-04-05] MED LIST changes: -ASPI81TA28 PO; -ESZO1TAB16 PO; +ESZO1TAB18 PO; -LEFL10TA PO; +LVNIS150 SQ; -RXC5 PO; +TRAM-10 PO; -ULT50X PO; +WARF5TAB90 PO
--- NOTE | 2018-04-05 12:22 | DIAGNOSTIC IMAGING REPORT ---
LEFT LOWER EXTREMITY VENOUS DOPPLER HISTORY: LEFT LEG PAIN AND SWELLING,HX CLOT COMPARISON STUDY: None. FINDINGS: The left common femoral, superficial femoral, popliteal, anterior tibial, and posterior tibial veins are patent. There is thrombus identified within the peroneal veins. IMPRESSION: Deep vein thrombosis involving the left peroneal veins. Electronically signed by: Ry Abbasi M.D. 04/05/2018 12:21 PM Dictated Date/Time: 04/05/2018 12:20 PM
== END | disposition home or self-care (01) ==
LOC: C.ULTR 11:47
PROVIDERS: ATTEND Physician Assistant Medical
DX: M79.662 Pain in left lower leg (principal); I82.4Z2 Acute embolism and thrombosis of unspecified deep veins of left distal lower extremity

== ENCOUNTER → 2018-07-15 | Outpatient (CLI) | payer BC ==
[~2018-07-15] MED LIST changes: -LVNIS150 SQ; +OXYC-90 PO; -OXYC1TAB3 PO; +RIVA1TAB4 PO; -WARF5TAB90 PO
--- NOTE | 2018-07-15 17:23 | DIAGNOSTIC IMAGING REPORT ---
VENOUS DOPP LOWER EXT UNILAT HISTORY: 48 years-old Female LEFT PAIN IN CALF acute left calf pain COMPARISON: Duplex venous Doppler study 04/05/2018 TECHNIQUE: Multiple real-time sonographic images of the left lower extremity deep venous structures were obtained assessing grayscale appearance, color and spectral flow FINDINGS: There is normal flow, compressibility, phasicity and augmentation of the left lower extremity deep venous structures. IMPRESSION: No sonographic evidence of deep venous thrombosis. The above report was generated using voice recognition software. It may contain grammatical, syntax or spelling errors. Electronically signed by: Pradip Hurt M.D. 07/15/2018 5:22 PM Dictated Date/Time: 07/15/2018 5:21 PM
== END | disposition home or self-care (01) ==
LOC: C.ULTR 16:33
PROVIDERS: ATTEND Family Medicine
DX: M79.669 Pain in unspecified lower leg (principal)

== ENCOUNTER 2024-06-02 10:19 | Inpatient (IN) ==
--- NOTE | 2024-05-10 10:38 | PAT Medication Instructions ---
Medication Instructions Date of Service May 10, 2024 Home Medications pantoprazole 40 mg tablet,delayed release 40 mg PO QPM valacyclovir 1 gram tablet (Valtrex) 1,000 mg PO DAILY PRN Cold Sores acetaminophen 325 mg capsule (Tylenol) 325 mg PO QID PRN Pain citalopram 20 mg tablet 20 mg PO QAM gabapentin 300 mg tablet 300 mg PO TID naproxen sodium 220 mg tablet (Aleve) 220 mg PO BID PRN Pain oxycodone 5 mg tablet 5 mg PO Q6H PRN Pain MEDICATION INSTRUCTIONS: Continue as directed valacyclovir 1 gram tablet (Valtrex) 1,000 mg PO DAILY PRN Cold Sores ASK your surgeon for instructions naproxen sodium 220 mg tablet (Aleve) 220 mg PO BID PRN Pain Take morning of surgery With a small sip of water, OTHERWISE NOTHING TO EAT OR DRINK AFTER MIDNIGHT: citalopram 20 mg tablet 20 mg PO QAM acetaminophen 325 mg capsule (Tylenol) 325 mg PO QID PRN Pain gabapentin 300 mg tablet 300 mg PO TID oxycodone 5 mg tablet 5 mg PO Q6H PRN Pain Take evening before surgery pantoprazole 40 mg tablet,delayed release 40 mg PO QPM acetaminophen 325 mg capsule (Tylenol) 325 mg PO QID PRN Pain gabapentin 300 mg tablet 300 mg PO TID oxycodone 5 mg tablet 5 mg PO Q6H PRN Pain Other Notes If you have any questions please call us at [phone] or [phone] or [phone] or [phone]
--- NOTE | 2024-05-15 13:32 | Anesthesiology Consultation ---
Date of Service May 15, 2024 Assessment & Plan (1) Encounter for pre-operative examination: - surgeon ordered PCP pre-operative evaluation 05/29/24 (Dr. Janel Vick). PAT testing to be faxed to PCP. Chart Review Chart Review: Pending: Refer to Additional Notes / Consult section and Patient seen in Pre Admission Testing Teaching & Discussion Pre-Anesthesia Teaching/Discussion Notes: Instructed NPO after midnight before surgery, except medications with 15 cc of water. Medication instructions provided according to the PAT guidelines. History Surgery Operation Date: 06/02/24 11:25 Proposed Procedures p L4-S1 Decompression and Fusion, Spinal Cord Monitoring - Ra Seals, Height/Weight Height: 5 ft 5 in Weight: 92.5 kg Allergies Allergy/AdvReac Type Severity Reaction Status Date / Time levofloxacin Allergy Severe ANAPHYLAXIS Verified 05/05/24 09:00 nickel Allergy Intermediate blisters, Verified 05/05/24 09:00 redness and itching CHEAP METALS Allergy Intermediate "WATERY" Uncoded 05/05/24 09:00 BLISTERS, RED RASH Medications Home Medications Medication Instructions Recorded Confirmed Last Taken pantoprazole 40 mg tablet,delayed 40 mg PO QPM 11/24/18 05/05/24 01/20/24 release valacyclovir 1 gram tablet 1,000 mg PO DAILY PRN Cold Sores 05/02/21 05/05/24 02/12/21 (Valtrex) acetaminophen 325 mg capsule 325 mg PO QID PRN Pain (Scale 01/14/24 05/05/24 Unknown (Tylenol) Score 1-3) citalopram 20 mg tablet 20 mg PO QAM 01/14/24 05/05/24 01/20/24 gabapentin 300 mg tablet 300 mg PO TID 01/14/24 05/05/24 01/20/24 naproxen sodium 220 mg tablet 220 mg PO BID PRN Pain (Scale 01/14/24 05/05/24 Unknown (Aleve) Score 1-3) oxycodone 5 mg tablet 5 mg PO Q6H PRN Pain (Scale Score 01/14/24 05/05/24 Unknown 4-6) Past Medical History Medical History (Updated 05/15/24 @ 14:46 by Esther Vega PA-C) Anxiety Degenerative disc disease Depression GERD (gastroesophageal reflux disease) controlled, stable per pt Hx of (~1995) x3 Hx of cervical cancer LEEP, no other tx Hx of deep venous thrombosis left lower leg, 2018 after neck surgery, no further issues Hx of renal calculi Migraines hx Osteoarthritis Plantar fasciitis Temporomandibular joint disorder bilat clicks/shifts - no locking Patient denies h/o stroke, seizures, heart attack, heart failure, DM, HTN, or blood transfusions. Exercise / Class Metabolic Activity II 4-5 Yardwork/Stairs/Walk up hill (denies chest discomfort or shortness of breath with one flight of stairs) Past Family History Family History Mother Clotting disorder PT HAS NO DETAILS-HER MOTHER WAS ADOPTED-REMOTE FAMILY HX Cancer Father Marfan syndrome Other Stroke Past Surgical History Surgical History (Updated 05/15/24 @ 13:38 by Esther Vega PA-C) History of bilateral tubal ligation (~2000) History of bladder surgery tacking History of carpal tunnel release bilat History of cholecystectomy History of colonoscopy (~2022) History of hysterectomy History of laparoscopy adhesions History of loop electrical excision procedure (LEEP) History of removal of skin mole right leg, cancerous, no tx History of trigger finger Left Thumb Trigger Digit Release Hx of elbow surgery bilat Hx of fusion of cervical spine C5-6 > ROM WNL Past Anesthesia History No Hx of Anesthesia Complications and No Family Hx of Anesthesia Complications History of PONV No Hx of PONV and No Hx of Motion Sickness Social History Smoking Status: Former smoker Smoking cigarettes per day: 1 PPD Do You Dip or Chew Tobacco: No Smoking End Date: 2012 Hx Alcohol Use: No Hx Substance Use: No substance use type: does not use Review of Systems Snoring, denies witnessed apneas. Patient denies chest pain, shortness of breath, dyspnea on exertion, fever, chills, cough, wheezing, or palpitations. Physical Exam Vital Signs Vitals BP 108/75 P 58 TEMP 98 SP02 97% on RA RESP 18 Physical Patient resting comfortably in chair in no acute distress, alert and oriented, responding appropriately throughout visit Full cervical extension range of motion without pain TMD 3.5 finger breadths Mallampati Score 2 Dentition: front upper chipped teeth, denies loose teeth, caps/crowns, implants or bridges Lungs: normal respiratory effort. Good air movement, clear throughout to auscultation, no adventitious breath sounds Cardiac: regular rate and rhythm, no murmurs noted Carotid arteries: negative bruit bilat Lab Results Anesthesia Preop Results Results Anesthesia Widget: PT 10.1 Seconds (9.0-12.0) 05/15/24 PTT 26 Seconds (21-31) 05/15/24 INR 0.9 (0.9-1.1) 05/15/24 TSH 0.761 uIu/ml (0.300-4.500) 05/15/24 Free T4 0.59 ng/dl (0.61-1.60) L 05/15/24 Urine Color Yellow 05/15/24 Urine Appearance Clear (Clear) 05/15/24 Urine pH 7.0 (4.5-7.5) 05/15/24 Urine Specific [place] 1.013 (1.000-1.030) 05/15/24 Urine Protein Negative (Negative) 05/15/24 Urine Glucose (UA) Negative (Negative) 05/15/24 Urine Ketones Negative (Negative) 05/15/24 Urine Blood Negative (Negative) 05/15/24 Urine Nitrite Negative (Negative) 05/15/24 Urine Bilirubin Negative (Negative) 05/15/24 Urine Urobilinogen Negative (Negative) 05/15/24 Urine Leukocyte Esterase 1+ (Negative) H 05/15/24 Urine WBC (Auto) 6-10 /hpf (0-5) H 05/15/24 Urine RBC (Auto) 0-2 /hpf (0-2) 05/15/24 Urine Hyaline Casts (Auto) 0-2 /lpf (0-2) 05/15/24 Urine Epithelial Cells (Auto) 0-2 /hpf (0-2) 05/15/24 Urine Bacteria (Auto) None Seen (None Seen) 05/15/24 Blood Type A Negative 05/15/24 Antibody Screen NEGATIVE 05/15/24 Testing Laboratory Results 04/12/24 WBC: 7.1 H/H: 14/ PLATELETS: 244,000 SODIUM: 140 POTASSIUM: 4.2 CHLORIDE: 106 CO2: 27 BUN: 9 CREATININE: 0.9 GLUCOSE: 135 TSH: 0.4 free T4: 0.8 Electrocardiogram Date: 01/18/24 Marked sinus bradycardia, rate 48 bpm Chest X-Ray Date: 05/15/24 No acute chest disease. Cervical Spine Date: 04/19/24 1. Status post C5-C6 anterior discectomy and fusion. 2. No severe central canal stenosis. Mild central canal narrowing at C7-T1, as described above. 3. Multilevel neural foraminal stenosis, as above. This is predominantly due to facet arthrosis.
[2024-06-02] MEDS: LR 60ML/HR IV SCH (10:56)
[2024-06-02] MEDS: ACETAMINOPHEN 500 MG TAB PO SCH (10:56)
[2024-06-02] MEDS: GABAPENTIN 900 MG DOSE PO SCH (10:57)
[2024-06-02] MEDS: CeleBREX 200 MG CAP PO SCH (10:57)
[2024-06-02] MEDS ORDERED: fentaNYL citrate PF 100 MCG/2 ML VIAL ONE (11:16)
[2024-06-02] MEDS ORDERED: MIDAZOLAM HCL 1 MG/ML 2ML VIAL ONE (11:16)
--- NOTE | 2024-06-02 11:19 | History & Physical Bridge Note ---
Date of Service June 02, 2024 History & Physical Bridge Note I have examined the patient, reviewed the History & Physical and in the interval since the performance of the History & Physical I have noted the following changes of clinical significance: no changes noted
[2024-06-02] MEDS ORDERED: ePHEDrine sulfate 50 MG/ML AMP IV PRN (11:20)
[2024-06-02] MEDS ORDERED: HYDROmorphone INJ 2 MG/ML SYR/VIAL IV PRN (11:20)
[2024-06-02] MEDS ORDERED: ATROPINE SULFATE 0.1 MG/ML 10ML SYR IV PRN (11:20)
[2024-06-02] MEDS ORDERED: ONDANSETRON INJ 2 MG/ML 2 ML VIAL IV PRN ×2 (11:20→16:10)
--- NOTE | 2024-06-02 11:20 | History & Physical Report ---
Date of Service June 02, 2024 Assessment & Plan (1) Neurogenic claudication due to lumbar spinal stenosis: Plan: L4-S1 decompression possible fusion History of Present Illness Chief Complaint: Back and bilateral leg pain Primary Care Provider: Janel Vick DO This is a 54-year-old female who presents for chronic persistent back and bilateral leg pain after failing course of nonoperative care she is here for surgical intervention. Allergies Allergy/AdvReac Type Severity Reaction Status Date / Time levofloxacin Allergy Severe ANAPHYLAXIS Verified 06/02/24 10:44 nickel Allergy Intermediate blisters, Verified 06/02/24 10:44 redness and itching CHEAP METALS Allergy Intermediate "WATERY" Uncoded 06/02/24 10:44 BLISTERS, RED RASH Home Medications Medication Instructions Recorded Confirmed Type pantoprazole 40 mg tablet,delayed 40 mg PO QPM 11/24/18 06/02/24 History release (Protonix) valacyclovir 1 gram tablet 1,000 mg PO DAILY PRN Cold Sores 05/02/21 06/02/24 History (Valtrex) acetaminophen 325 mg capsule 325 mg PO QID PRN Pain (Scale 01/14/24 06/02/24 History (Tylenol) Score 1-3) citalopram 20 mg tablet (Celexa) 20 mg PO QAM 01/14/24 06/02/24 History gabapentin 300 mg tablet 300 mg PO TID 01/14/24 06/02/24 History naproxen sodium 220 mg tablet 220 mg PO BID PRN Pain (Scale 01/14/24 06/02/24 History (Aleve) Score 1-3) oxycodone 5 mg tablet 5 mg PO Q6H PRN Pain (Scale Score 01/14/24 06/02/24 History 4-6) Past Med/Surg History Problem List (Updated 06/02/24 @ 11:19 by Ra Seals DO) Neurogenic claudication due to lumbar spinal stenosis Encounter for pre-operative examination Abdominal pain entered into EMR 06/17/21-pt denies current/recent abdominal pain Gallbladder polyp H/O colonoscopy Cervical cancer Skin cancer Arthritis Plantar fasciitis Gastro-esophageal reflux disease without esophagitis (Acute) Hx of neck surgery C5 and C6 fused-2018 Chronic low back pain Pruritic rash (Acute) entered into EMR 06/01/18-pt denies current/recent pruritic rash Back pain (Acute) pt denies change in chronic back pain Medical History (Updated 06/02/24 @ 11:19 by Ra Seals, ) Migraines hx Plantar fasciitis GERD (gastroesophageal reflux disease) controlled, stable per pt Hx of deep venous thrombosis left lower leg, 2018 after neck surgery, no further issues Hx of cervical cancer LEEP, no other tx Hx of (~1995) x3 Hx of renal calculi Degenerative disc disease Osteoarthritis Temporomandibular joint disorder bilat clicks/shifts - no locking Depression Anxiety Surgical History History of loop electrical excision procedure (LEEP) Hx of fusion of cervical spine C5-6 > ROM WNL Hx of elbow surgery bilat History of carpal tunnel release bilat History of cholecystectomy History of hysterectomy History of trigger finger Left Thumb Trigger Digit Release History of removal of skin mole right leg, cancerous, no tx History of bladder surgery tacking History of laparoscopy adhesions History of bilateral tubal ligation (~2000) History of colonoscopy (~2022) Family History Mother Clotting disorder PT HAS NO DETAILS-HER MOTHER WAS ADOPTED-REMOTE FAMILY HX Cancer Father Marfan syndrome Other Stroke Social History Smoking Status: Former smoker Tobacco Type: Cigarettes packs per day: 1; Cigarettes Per Day: 1 PPD; Smoking End Date: 2012; Second Hand Exposure: No; Do You Dip or Chew Tobacco: No; Tobacco Cessation Education Requested by Patient: No Hx Alcohol Use: No Hx Substance Use: No Preferred Language: Khmer Communication Ability: Effective 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: No Beliefs That Will Affect Care: None marital status: Current Living Situation: Spouse current occupational status: 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
[2024-06-02] MEDS: ceFAZolin 2000MG 2,000 MG/15 ML SYR IV SCH ×2 (11:49→19:56)
[2024-06-02] MEDS ORDERED: ePHEDrine sulfate 50 MG/ML AMP ONE (12:43)
[2024-06-02] MEDS ORDERED: ROCURONIUM BROMIDE 10 MG/ML 5 ML VIAL IV ONE ×2 (12:47→14:22)
[2024-06-02] MEDS: BUPIVACAINE/EPINEPHRINE 0.25% 1:200,000 30 ML VIAL ONE (12:49)
[2024-06-02] MEDS: ceFAZolin 330 MG/ML 1 GM VIAL ONE (12:49)
[2024-06-02] MEDS: FLOSEAL HEMOSTATIC MATRIX 10ML TOP ONE (14:09)
[2024-06-02] MEDS ORDERED: DEXAMETHASONE SOD INJ 4 MG/ML VIAL ONE (14:22)
[2024-06-02] MEDS ORDERED: ONDANSETRON INJ 2 MG/ML 2 ML VIAL ONE (14:22)
[2024-06-02] MEDS ORDERED: LIDOCAINE 2% 2 ML VIAL/AMP(20MG/ML) INFIL ONE (14:22)
[2024-06-02] MEDS ORDERED: PROPOFOL IV EMULSION 10 MG/ML 20 ML VIAL IV ONE (14:22)
--- NOTE | 2024-06-02 14:23 | Operative Report ---
Post Operative Report Pre & Post Diagnosis Operation Date: 06/02/24 11:45 Pre-Op Diagnosis: Neurogenic claudication due to lumbar spinal stenosis Post-Op Diagnosis: Neurogenic claudication due to lumbar spinal stenosis I identified the patient and participated in the time-out.: Yes Procedure Operation Date: 06/02/24 11:45 Actual Procedures p L4-S1 Decompression and Fusion, Spinal Cord Monitoring - Ra Seals DO Surgeon Ra Seals, Digital Field Service Technician Lucho Brown Estimated Blood Loss 450 Findings See Below The patient is 5 foot 6 weighing over 89 kg with a BMI in excess of 32. Patient probably has did contribute to significant technical difficulty with positioning exposure and the procedure itself adding at least 50% increased operative time. Specimens None Indications This is a 54-year-old female who presents problems diagnosis of failed course of nonoperative care is here for surgical invention. Description of Procedure Patient was met with identified informed consent obtained. Patient was then taken to the operative suite underwent patient placed in a prone position on the Don table top of the Obi frame. All bony promises well-padded eyes inspected to ensure no external pressure placed upon them. This point the lumbar spine was prepped and draped in normal sterile fashion. Sharp dissection with the assistance of Bovie cautery from down to and exposing the lamina L4-L5 bilaterally. From caudal to cephalad fashion decompression of L5 was performed. To adequately address the lateral recess and foraminal I did compromise well over 50% of the bilateral L5-S1 facets at this level. I then decompressed L4 and again had to perform aggressive bilateral medial facetectomies to address the severe lateral recess and foraminal stenosis again compromising well over 50% of the facet joints. After complete decompression I did move towards fusion in light of iatrogenic instability at the L4-L5 L5-S1 level. The transverse processes were exposed at L4-5 and the sacral ala bilaterally. Pedicle screws were then placed in L4-L5 and S1 levels bilaterally with assistance of fluoroscopy and appropriate size dave contoured and placed. Bilateral transforaminal approach on the right a complete discectomy L5-S1 was performed endplates guarded to subcortical bleeding bone and 11 x 26 mm spiral cage filled Morpheus bone graft tapped in position. Then proceeded to the left transforaminal region at L5-S1. Discectomy completed endplates guarded to subcortical bleeding bone and a second 11 x 26 mm spiral cage filled with Morpheus bone graft tapped in position. Then proceeded to L4-L5 and by way of a transfemoral approach on the right a discectomy was performed endplates guided to subcortical mean bone and a 13 x 26 mm spiral cage with Morpheus bone graft tapped in position. Then proceeded to the left transforaminal region at L4-5 completed the discectomy. Endplates guarded to subcortical bleeding bone and a second 13 x 26 mm spiral cage filled with Morpheus bone graft tapped in position. The rods were then compressed locked in final position bilaterally. The transverse processes of L4-5 and the sacral ala burred to subcortical bleeding bone. Infuse collagen sponge combined with Koros of bone graft and locally harvested morselized autograft was placed in the posterior gutters. 15 round THAO drain inserted. The incision was then closed with 1 Vicryl to fascia 2-0 Vicryl subcutaneously and 4 Monocryl for final skin closure. Steri-Strips sterile dressing placed. Patient waken taken to PACU stable condition. Please note spinal cord monitoring was utilized at the procedure no changes noted. Melo Brown was present at the entire surgeon while the patient positioning complex portion of the surgery and final skin closure. I attest to the content of the Intraoperative Record and any orders documented therein. Any exceptions are noted below.
--- NOTE | 2024-06-02 15:03 | Fluoroscopy Report ---
FL lumbar spine 2-3V CLINICAL HISTORY: L4-S1 DECOMPRESSION AND FUSION POSSIBLE INTERBODY COMPARISON STUDY: None. FLUOROSCOPY TIME: 32 seconds FLUOROSCOPY IMAGES: 2 Ka,r: 26.1 mGy FINDINGS: Posterior decompression and fusion from L4 through S1 with pedicle screws and rods. The niko dware appears intact. Disc spacers are in place. IMPRESSION: Fluoroscopic assistance as above. ACT 112: Negative or not required by law. Electronically signed by: Ry Abbasi M.D. 06/02/2024 3:01 PM
--- NOTE | 2024-06-02 15:49 | Anesthesiology Progress Note ---
Date of Service June 02, 2024 Anesthesia Post Procedure Vital Signs Vital Signs: Temp Pulse Resp BP BP Pulse Ox O2 Del Method 06/02/24 15:30 60 14 112/65 97 Room Air 06/02/24 15:20 59 L 15 106/60 100 Oxymask 06/02/24 15:10 61 12 107/61 99 Oxymask 06/02/24 15:00 71 12 110/63 100 Oxymask 06/02/24 14:50 60 15 111/65 99 Oxymask 06/02/24 14:43 36.4 C L 83 20 129/78 100 Oxymask 06/02/24 10:45 36.7 C 63 20 106/68 97 Room Air O2 Flow Rate 06/02/24 15:30 06/02/24 15:20 2 06/02/24 15:10 2 06/02/24 15:00 4 06/02/24 14:50 4 06/02/24 14:43 4 06/02/24 10:45 Pain Intensity Right Leg: Pain Intensity: 6 Transfer of Care Handoff Completed per policy Notes Mental Status: alert / awake / arousable and participated in evaluation Patient Amnestic to Procedure: Yes Nausea / Vomiting: adequately controlled Pain: adequately controlled Airway Patency, RR, SpO2: stable & adequate BP & HR: stable & adequate Hydration State: stable & adequate Anesthetic Complications: no major complications apparent and Pt Satisfied with anesthetic care
[2024-06-02] MEDS ORDERED: traMADol HCL 50 MG TABLET PO PRN (16:10)
[2024-06-02] MEDS ORDERED: NALOXONE HCL 0.4 MG/1 ML VIAL/CARP IV PRN (16:10)
[2024-06-02] MEDS ORDERED: PROMETHAZINE HCL 12.5 MG in SODIUM CHLORIDE 0.9% 50 ML IV PRN (16:10)
[2024-06-02] MEDS ORDERED: DO NOT ADMINISTER FLU VACCINE PRN (16:10)
[2024-06-02] MEDS ORDERED: DO NOT ADMINISTER PNEUMOCOCCAL VACCINE PRN (16:10)
[2024-06-02] MEDS ORDERED: MAGNESIUM HYDROXIDE SUSP 30 ML UDC PO PRN (16:10)
[2024-06-02] MEDS ORDERED: LORazepam 0.5 MG TAB PO PRN (16:10)
[2024-06-02] MEDS ORDERED: ACETAMINOPHEN 1,000 MG/100 ML VIAL IV PRN (16:10)
[2024-06-02] MEDS ORDERED: ONDANSETRON 4 MG OD TAB PO PRN (16:10)
[2024-06-02] MEDS ORDERED: SOD PHOSPHATE/SOD BIPHOSPHATE ENEMA 132 ML BTL PR PRN (16:10)
[2024-06-02] MEDS ORDERED: bisacodyL 10 MG SUPP PR PRN (16:10)
[2024-06-02] MEDS ORDERED: hydrOXYzine HCl 25 MG TAB PO PRN (16:10)
[2024-06-02] MEDS ORDERED: ALUMINUM/MAGNESIUM SUSP 30 ML UDC PO PRN (16:10)
[2024-06-02] MEDS ORDERED: METOCLOPRAMIDE HCL INJ 5 MG/ML 2 ML VIAL IV PRN (16:10)
[2024-06-02] MEDS ORDERED: diphenhydrAMINE Capsule 25 MG CAP PO PRN (16:10)
[2024-06-02] MEDS: HYDROmorphone INJ 0.5 MG/0.5 ML SYR IV PRN (16:36)
[2024-06-02] MEDS: LACTATED RINGER'S 1,000 ML IV SCH (16:36)
--- NOTE | 2024-06-02 18:10 | Hospitalist Consultation ---
Date of Consultation June 02, 2024 Assessment & Plan (1) Status post lumbar spine surgery for decompression of spinal cord: Pain control, perioperative antibiotics, IV fluids, and DVT prophylaxis per the primary team Patient is postop day #0 status post L4-S1 decompression and fusion with Dr. Seals EBL was listed as 450 cc Patient currently appears stable and nontoxic-appearing, without current neurologic changes after the procedure Agree with a.m. CBC and BMP, we will review tomorrow Rest of care per the primary team Please reach out with any questions or concerns moving forward Medicine will continue to follow (2) Gastro-esophageal reflux disease without esophagitis: Agree with as needed famotidine and scheduled pantoprazole Plan The patient was discussed with Dr. Miguel at the time of the consult History of Present Illness Reason for Consultation: Postoperative medical management Requesting Physician: aR Seals DO Attending Physician: Dr. Mykel Miguel History of Present Illness Sakshi is a 54-year-old female with a past medical history significant for psoriatic arthritis, GERD, anxiety who presented to the [facility] OR on 06/02/2024 for scheduled L4-S1 decompression and fusion with Dr. Seals. Per the operative report, EBL was listed as 450 cc, anesthesia type and intraoperative complications were not listed. Patient was sitting in bed in no acute distress at the time of exam with her bedside. The patient appears fatigued at the time of exam, her explains that she recent received a dose of Dilaudid for pain. Patient states her pain is currently under control, denies current paresthesias in the lower extremities, fever/chills, chest pain, shortness of breath, abdominal pain, nausea vomiting, dysuria, hematuria, recent diarrhea/melena. Denies tobacco or alcohol use. When asked, she states that she did not have her a.m. medications this morning prior to arriving to the hospital. Please refer to Dr. Miguel's attestation for any changes to the treatment plan Allergies Allergy/AdvReac Type Severity Reaction Status Date / Time levofloxacin Allergy Severe ANAPHYLAXIS Verified 06/02/24 10:44 nickel Allergy Intermediate blisters, Verified 06/02/24 10:44 redness and itching CHEAP METALS Allergy Intermediate "WATERY" Uncoded 06/02/24 10:44 BLISTERS, RED RASH Home Medications Medication Instructions Recorded Confirmed Type pantoprazole 40 mg tablet,delayed 40 mg PO QPM 11/24/18 06/02/24 History release (Protonix) valacyclovir 1 gram tablet 1,000 mg PO DAILY PRN Cold Sores 05/02/21 06/02/24 History (Valtrex) acetaminophen 325 mg capsule 325 mg PO QID PRN Pain (Scale 01/14/24 06/02/24 History (Tylenol) Score 1-3) citalopram 20 mg tablet (Celexa) 20 mg PO QAM 01/14/24 06/02/24 History gabapentin 300 mg tablet 300 mg PO TID 01/14/24 06/02/24 History naproxen sodium 220 mg tablet 220 mg PO BID PRN Pain (Scale 01/14/24 06/02/24 History (Aleve) Score 1-3) oxycodone 5 mg tablet 5 mg PO Q6H PRN Pain (Scale Score 01/14/24 06/02/24 History 4-6) oxycodone 5 mg tablet 5 mg PO Q6H PRN pain #30 tabs 06/03/24 Rx tramadol 50 mg tablet 50 mg PO Q6H PRN pain, moderate 06/03/24 Rx #30 tabs Patient History Medical History (Updated 06/02/24 @ 11:19 by Ra Seals DO) Migraines hx Plantar fasciitis GERD (gastroesophageal reflux disease) controlled, stable per pt Hx of deep venous thrombosis left lower leg, 2018 after neck surgery, no further issues Hx of cervical cancer LEEP, no other tx Hx of (~1995) x3 Hx of renal calculi Degenerative disc disease Osteoarthritis Temporomandibular joint disorder bilat clicks/shifts - no locking Depression Anxiety Surgical History (Updated 06/02/24 @ 18:27 by Herber Zavala PA-C) History of loop electrical excision procedure (LEEP) Hx of fusion of cervical spine C5-6 > ROM WNL Hx of elbow surgery bilat History of carpal tunnel release bilat History of cholecystectomy History of hysterectomy History of trigger finger Left Thumb Trigger Digit Release History of removal of skin mole right leg, cancerous, no tx History of bladder surgery tacking History of laparoscopy adhesions History of bilateral tubal ligation (~2000) History of colonoscopy (~2022) Family History Mother Clotting disorder PT HAS NO DETAILS-HER MOTHER WAS ADOPTED-REMOTE FAMILY HX Cancer Father Marfan syndrome Other Stroke Social History Smoking Status: Former smoker Tobacco Type: Cigarettes packs per day: 1; Cigarettes Per Day: 1 PPD; Smoking End Date: 2012; Second Hand Exposure: No; Do You Dip or Chew Tobacco: No; Tobacco Cessation Education Requested by Patient: No Hx Alcohol Use: Yes Alcohol type: wine Hx Substance Use: No Preferred Language: Amharic Communication Ability: Effective 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 Required: No Beliefs That Will Affect Care: None marital status: Current Living Situation: Spouse 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 occupational status: 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 How many Children do You have: 5 Other Information That Helps Us Care for You: No Feels Safe at Home: Yes Safety Concerns: Feels Safe At This Time Diet: regular during the past year weight has: decreased > 10 lbs Assistive Devices: None Physical Exam Physical Exam: Physical Exam: General: In no acute distress, stated age, well-nourished, good hygiene HEENT: Normocephalic, atraumatic, no scleral icterus, pupils around round, symmetrical, and reactive to light, moist mucus membranes, trachea midline, no thyromegaly Chest/Pulm: No respiratory distress, symmetrical chest expansion, clear breath sounds throughout Cardiac: RRR, no murmurs noted Abdomen: Negative for ascites and bruising, normoactive bowel sounds, soft, non-tender to palpation throughout Musculoskeletal: Symmetrical and without signs of acute trauma, upper extremities with full ROM, patient with intact sensation and motor function in the BL feet Extremities: Radial, dorsalis pedis, and posterior tibial pulses are intact and symmetrical, SCD's currently in place on the BL LE's Skin: Surgical site is currently bandaged and without signs of bleeding, drain is in place and without signs of purulence or infection Neuro: Alert and oriented to person, place, month, year, and president, no focal defects Psych: No acute distress, calm and cooperative during the exam Results & Data Results & Data Vital Signs (Past 12 Hours) Vital Signs Temp Pulse Resp BP BP Pulse Ox O2 Del Method 06/02/24 17:10 36.7 C 61 20 109/69 98 Room Air 06/02/24 16:37 36.5 C 70 20 102/66 96 Room Air 06/02/24 16:10 36.5 C 73 20 117/71 99 Room Air 06/02/24 15:50 36.4 C L 70 19 116/70 94 Room Air 06/02/24 15:40 61 16 102/61 95 Room Air 06/02/24 15:30 60 14 112/65 97 Room Air 06/02/24 15:20 59 L 15 106/60 100 Oxymask 06/02/24 15:10 61 12 107/61 99 Oxymask 06/02/24 15:00 71 12 110/63 100 Oxymask 06/02/24 14:50 60 15 111/65 99 Oxymask 06/02/24 14:43 36.4 C L 83 20 129/78 100 Oxymask 06/02/24 10:45 36.7 C 63 20 106/68 97 Room Air O2 Flow Rate 06/02/24 17:10 06/02/24 16:37 06/02/24 16:10 06/02/24 15:50 06/02/24 15:40 06/02/24 15:30 06/02/24 15:20 2 06/02/24 15:10 2 06/02/24 15:00 4 06/02/24 14:50 4 06/02/24 14:43 4 06/02/24 10:45 Laboratory Results Abnormal lab results 06/02/24 Range/Units 10:29 Crossmatch See Detail Diagnostic Findings Lumbar Spine X-Ray 06/02/24 11:45 FL lumbar spine 2-3V CLINICAL HISTORY: L4-S1 DECOMPRESSION AND FUSION POSSIBLE INTERBODY COMPARISON STUDY: None. FLUOROSCOPY TIME: 32 seconds FLUOROSCOPY IMAGES: 2 Ka,r: 26.1 mGy FINDINGS: Posterior decompression and fusion from L4 through S1 with pedicle screws and rods. The hardware appears intact. Disc spacers are in place. IMPRESSION: Fluoroscopic assistance as above. ACT 112: Negative or not required by law. Electronically signed by: Ry Abbasi M.D. 06/02/2024 3:01 PM PG Care Time/CCT Total # of Minutes Spent Total Time Spent with Patient: Total time spent is greater than 50% in coordination of care (as documented) at patient's floor/unit and/or counseling patient: Coding [place] [address] IN/OBS CONSULT LVL 5,80M Patient Type Established Medical Decision Making Moderate Complexity Diagnoses Status post lumbar spine surgery for decompression of spinal cord Z98.890 Gastro-esophageal reflux disease without esophagitis K21.9
[2024-06-02] MEDS: oxyCODONE HCL IR 5 MG TAB (IMMEDIATE RELEASE) PO PRN (21:54)
[2024-06-02] MEDS: GABAPENTIN 300 MG CAP PO SCH (21:55)
[2024-06-02] MEDS: PANTOprazole 40 MG TAB PO SCH (21:55)
[2024-06-02] MEDS: DOCUSATE SODIUM/SENNA 50/8.6MG TAB PO SCH (21:55)
--- OUTSIDE RECORDS SUMMARY | 2024-06-02 22:26 | External Medical Summary | Continuity of Care Document ---
Author Name Unknown Organization [address] Address [address] [place] [id number] Care Team Providers Care Rougher For [employer] Name Role Phone Janel Vick Primary Care Physician [phone] [id number] Date(s): 05/29/24 - 05/29/[address], [address] [place] [address] [phone] Encounter Diagnosis Pre-op exam(Discharge Diagnosis) - 05/29/24 Abnormal serum thyroxine (T4) level(Discharge Diagnosis) - 05/29/24 Family history of thyroid cancer(Discharge Diagnosis) - 05/29/24 Pituitary cyst(Discharge Diagnosis) - 05/29/24 Skin lesion(Discharge Diagnosis) - 05/29/24 Discharge Disposition: Home or Self Care Attending Physician: DO Vick Kristen M Referring Physician: DO Vick Kristen M Allergies, Adverse Reactions, Alerts Substance Criticality Severity Reaction Reaction Severity Status Levaquin Anaphylaxis Active Trace Metals rash Active Assessment and Plan Extracted from: Title:Office Visit Note Author:DO Vick Kriste n M Date:05/29/24 1.Pre-op exam -see other note 2.Abnormal serum thyroxine (T4) level Acute, uncomplicated illness/injury Goal:Resolution Data:unique tests ordered: _ Plan: _synthroid 25 mcg po daily 3.Family history of thyroid cancer Chronic condition, stable Goal:Resolution Data:unique tests ordered: _ Plan: _thyroid ultrasound 4.Pituitary cyst Chronic condition, stable Goal:Resolution Data:unique tests ordered: _ Plan: _MRI of brain reorder 5.Skin lesion Chronic condition, stable Goal:Resolution Data:unique tests ordered: _ Plan: _referral to derm --solar lentigo??? Extracted from: Title:Office Visit Note Author:DO Nava Iram otilio Guillermo Date:05/29/24 1.Pre-op exam -labs reviewed--will get US -cxr normal -coag normal -EKG no change -form completed Immunizations Given and Recorded Vaccine Date Status Refusal Reason tetanus/diphtheria/pertuss, acel (Tdap) 1 08/28/17 Recorded influenza virus vaccine, inactivated 08/02/12 Give n 1Result Comment: 2021-09-03: Historical information-source unspecified Medications acetaminophen Start: 02/12/22 12:32:00 PM EDT, 1,000 mg =, PRN: as needed for pain Start Date: 02/12/22 Status: Ordered citalopram 20 mg oral tablet Start: 05/22/24 1:52:00 PM EDT, 1 tab, PO, Daily, Disp# 90 tab, Refills: 3, Pharmacy: [id number] Start Date: 05/22/24 Status: Ordered Flexeril 10 mg oral tablet Start: 04/19/24 3:08:00 PM EDT, 1 tab, PO, tid, Disp# 30 tab, Refills: 0, PRN: as needed for spasm, Pharmacy: [id number] Start Date: 04/19/24 Stop Date: 04/29/24 Status: Ordered oxyCODONE 5 mg oral tablet Start: 05/29/24 11:47:00 AM EDT, 5 mg =, PO, bid, Disp# 30 tab, Refills: 0, prn, Pharmacy: [id number] Start Date: 05/29/24 Status: Ordered pantoprazole 40 mg oral delayed release tablet Start: 08/03/23 2:48:00 PM EDT, See Instructions, Disp# 90 tab, Refills: 3, TAKE 1 TABLET BY MOUTH EVERY DAY, [facility]acy: [id number] Start Date: 08/03/23 Status: Ordered Soma 350 mg oral tablet Start: 01/27/24 11:08:00 AM EST, 1 tab, PO, qid, Disp# 15 tab, Refills: 0, Pharmacy: [id number] Start Date: 01/27/24 Status: Ordered Synthroid 25 mcg (0.025 mg) oral tablet Start: 05/29/24 11:28:00 AM EDT, 1 tab, PO, Daily, Disp# 30 tab, Refills: 1, Pharmacy: [facility][id number] Start Date: 05/29/24 Stop Date: 07/28/24 Status: Ordered traMADol 50 mg oral tablet Start: 05/31/24 2:27:00 PM EDT, 1 tab, PO, q4h, Disp# 45 tab, Refills: 0, prn back pain after surgery not to exceed 400 mg/day, PRN: as needed for pain, Pharmacy: [facility] #[id number] Start Date: 05/31/24 Stop Date: 06/10/24 Status: Ordered Valtrex 1 g oral tablet Start: 11/02/23 9:54:00 AM EST, 1 tab, PO, Daily, Disp# 90 tab, Refills: 3, Pharmacy: [facility] #[id number] Start Date: 11/02/23 Status: Ordered Mental Status 05/29/24 Barriers to Learning one year None evide nt Mandatory Health Literacy Documentation Yes Health Literacy Communication Barriers N ever Primary Language Japanese Problem List Condition Confirmation Course Effective Dates Status Health Status Informant Acute sinus infection Confirmed Active Acute UTI Confirmed Active Back pain.. Confirmed 07/26/13 Active Back pain Confirmed Active Chest wall pain Confirmed 07/26/13 Active Estrogen deficiency Confirmed Active Depression Confirmed Active Dysuria Confirmed Active Right foot pain Confirmed Active Chronic GERD Confirmed Active Pre-orgasmic headache Confirmed Active Shingles Confirmed Active HSV-2 infection Confirmed Active Personal history of kidney stones Confirmed Active HPV - Human papillomavirus test positive 1 Confirmed Active HSV (herpes simplex virus) infection Confirmed 08/17/13 Active Hypercholesteremia Confirmed Active Impaired glucose metabolism Confirmed Active Nephrolithiasis Confirmed Active Lower back pain Confirmed Active Lumbar radiculopathy Confirmed Active Lumbar spondylosis Confirmed Active Memory disturbance Confirmed Active Menopausal state Confirmed Active Migraine Confirmed Active Neck pain Confirmed Active Neuropathy Confirmed Active Numbness of right hand Confirmed Active Osteopenia Confirmed Active Left leg pain Confirmed Active Pelvic pain Confirmed Active Toe pain Confirmed Active PE (physical exam), routine Confirmed Active Peripheral neuropathy Confirmed 08/17/13 Active Plantar fasciitis Confirmed 03/27/13 Active Polyarthritis Confirmed Active Psoriatic arthropathy Confirmed Active Psoriatic arthritis Confirmed Active Recurrent UTI Confirmed Active SI joint arthritis Confirmed Active Skin lesion Confirmed Active Sleep disorder Confirmed Active Trigger thumb Confirmed Active Encounter for removal of sutures Confirmed Active Phlebitis of arm Confirmed Active THYROIDITIS 2 Confirmed Active Hallux rigidus, right foot Confirmed Active Urinary tract infection Confirmed 08/02/12 Active UTI 3 Confirmed Active Vaginal dryness, menopausal Confirmed Active Viral syndrome Confirmed Active Weight disorder Confirmed Active 1hx leep procedure 23 episodes Diagnosis Diagnosis Type Effective Dates Health Status Cl inical Service Informant Abnormal serum thyroxine (T4) level Discharge Diagnosis 05/29/24 Non-Specified Pre-op exam Discharge Diagnosis 05/29/24 Non-Specified Family history of thyroid cancer Discharge Diagnosis 05/29/24 Non-Specified Pituitary cyst Discharge Diagnosis 05/29/24 Non-Specified Skin lesion Discharge Diagnosis 05/29/24 Non-Specified Procedures Procedure Date Related Diagnosis Body Site Status Trigger thumb of left hand 01/21/24 Completed Lumbar epidural steroid injection 10/05/22 Completed Knee meniscus structure 2021 C ompleted Cholecystectomy 07/15/21 Completed Cholecystectomy 1 07/03/21 Complet ed Colonoscopy 2, 3 01/23/[address] 4 12/22/19 Completed Venous doppler ultrasonography 5 12/22/19 Completed Diabetic retinal eye exam 6 11/09/19 Completed Ultrasound--biliary 7 10/05/19 Com pleted Excision 8, 9 02/23/19 Completed Venous doppler ultrasonography 10 07/15/18 Completed Mammogram - localization 11 11/20/16 Completed MRI (Magnetic resonance imag ing) of brain volume 12 11/19/16 Completed breast augmentation Compl eted cystocele Completed LEEP Completed left shoulder fx. Complet ed ovarian cyst Completed ovaries adhesions 13 Comp leted Procedure 14 Completed rectocele Completed right arm tendon repair C ompleted tubal ligation Completed 1Laparoscopic Cholecystectomy 2COLO to cecum, 2 rectal polyps 2-4 mm CF, 3Polyps - 2 hyperplastic. Repeat colonoscopy in 10 yrs ( 2030). F/u as needed 41. No acute intrathoracic findings. 2. No evidence of acute pulmonary embolism. 3. No evidence of focal pulmonary consolidation. 4. 4mm subpleural left lower lobe pulmonary nodule. In a low risk patient, no further follow-up is indicated. 5No DVT within the left lower extremity. 620/20 - OD 20/25 +2 OS Biomicroscopy reveals no iris neovasularization. Intraocular pressures were 19mmHg OD and 18mmHgOS. Dialated fundus exam was unremarkable 71) Borderline increased hepatic echogenicity. Mild hepatic steatosis cannot be excluded. 2) Ultrasonographically normal gallbladder and pancreas. 3) No ductal dilatation 4) 2 cm right renal cyst. 8dysplastic nevus 9Right proximal medial thigh 10Impression: No sonographic evidence of Deep Venous thrombosis 11No suspicious mammographic or sonographic abnormality at the site of right lateral breast pain. There is no mammographic or targeted sonographic evidence of malignancy. Recommend clinical follow-up for right breast pain,and recommend routine bilateral screening mammograms in one year. 12unremarkable brain MRI 13removed x3 14C5-6 fusion Vital Signs Most recent to oldest [Reference Range]: 1 Patient Weight 89.3 kg (05/29/24 10:51 AM) Temperature [36.5-37.9 DegC] 35.9 DegC *LOW* (05/29/24 10:51 AM) Heart Rate 72 bpm (05/29/24 10:51 AM) Blood Pressure 124/80mmHg (05/29/24 10:51 AM) Cuff Pulse Pressure 44 mmHg (05/29/24 10:51 AM) Social History Social History Type Response Tobacco Former smoker, Cigar ettes 1 Smoking Status Never smoked cigaret sara Sex 1Quit over 2 years ago [facility]CM Outpt Note * DO Vick Kristen M: PERFORM Event Display: FCM Outpt Note Authored Date: [id number] Chief Complaint Preop clearance back surgery 06/02/24. History of Present Illness Pt here for Pre-op but had a low T4. She also found out new family history of thyroid cancer and thyroid disorder. Physical Exam Vitals & Measurements T:35.9C HR:72(Monitored) BP:124/80 SpO2:96% WT:89.3kg WT:89.300kg(Dosing) PHQ2 Data(Data Documented on:05/29/2024 10:49) Emotional health assessment POSITIVE PHQ-9 modified for adolescents not completed G: AAAOx3, NAD H: RR normal S1/S2 no M/R/G L: CTA b/l no r/r/w E: no c/C/E b/l, pos distal pulses P: normal affect and insight, no homicidal/suicidal ideation Assessment/Plan 1.Pre-op exam -see other note 2.Abnormal serum thyroxine (T4) level Acute, uncomplicated illness/injury Goal:Resolution Data:unique tests ordered: _ Plan: _synthroid 25 mcg po daily 3.Family history of thyroid cancer Chronic condition, stable Goal:Resolution Data:unique tests ordered: _ Plan: _thyroid ultrasound 4.Pituitary cyst Chronic condition, stable Goal:Resolution Data:unique tests ordered: _ Plan: _MRI of brain reorder 5.Skin lesion Chronic condition, stable Goal:Resolution Data:unique tests ordered: _ Plan: _referral to derm --solar lentigo??? Problem List/Past Medical History Ongoing Acute sinus infection Acute UTI Back pain Back pain.. Chest wall pain Chronic GERD Depression Dysuria Encounter for removal of sutures Estrogen deficiency Hallux rigidus, right foot HPV - Human papillomavirus test positive HSV (herpes simplex virus) infection HSV-2 infection Hypercholesteremia Impaired glucose metabolism Left leg pain Lower back pain Lumbar radiculopathy Lumbar spondylosis Memory disturbance Menopausal state Migraine Neck pain Nephrolithiasis Neuropathy Numbness of right hand Osteopenia PE (physical exam), routine Pelvic pain Peripheral neuropathy Personal history of kidney stones Phlebitis of arm Plantar fasciitis Polyarthritis Pre-orgasmic headache Psoriatic arthritis Psoriatic arthropathy Recurrent UTI Right foot pain Shingles SI joint arthritis Skin lesion Sleep disorder THYROIDITIS Toe pain Trigger thumb Urinary tract infection UTI Vaginal dryness, menopausal Viral syndrome Weight disorder Resolved Abnormal smell Allergic reaction Breast disorder Breast pain Chest pain Confusion Elevated CK Procedure/Surgical History Trigger thumb of left hand| Service Date: 2024Lumbar epidural steroid injection| Service Date: 10/05/2022Knee meniscus structure| Service Date: holecystectomy| Service Date: 07/15/2021holecystectomy| Service Date: 1Colonoscopy| Service Date: 01/23/2021Venous doppler ultrasonography| Service Date: 12/22/2019Chest CT| Service Date: 12/22/2019Diabetic retinal eye exam| Service Date: 11/09/2019Ultrasound--biliary| Service Date: 10/05/2019Excision| Service Date: 02/23/2019Venous doppler ultrasonography| Service Date: 07/15/2018Mammogram -localization| Service Date: 11/20/2016MRI (Magnetic resonance imaging) of brain volume| Service Date: 11/19/2016breast augmentationrectocelecystoceletubal ligationovaries adhesions right arm tendon repairleft shoulder fx.ovarian cystLEEPProcedure Medications acetaminophen, 1000 mg, PRN carisoprodol(Soma 350 mg oral tablet), 350 mg= 1 tab, PO, qid citalopram(citalopram 20 mg oral tablet), 1 tab, PO, Daily cyclobenzaprine(Flexeril 10 mg oral tablet), 10 mg= 1 tab, PO, tid, PRN levothyroxine(Synthroid 25 mcg (0.025 mg) oral tablet), 25 mcg= 1 tab, PO, Daily, 1 refills oxyCODONE(oxyCODONE 5 mg oral tablet), 5 mg, PO, bid pantoprazole(pantoprazole 40 mg oral delayed release tablet), See Instructions, 3 refills valACYclovir(Valtrex 1 g oral tablet), 1 g= 1 tab, PO, Daily, 3 refills Allergies LevaquinAnaphylaxis Trace Metalsrash Social History Smoking Status Never smoked cigarettes Alcohol - Denies Alcohol Use Substance Abuse - Denies Substance Abuse Tobacco - Denies Tobacco Use Use:Former smoker Type:Cigarettes - Comments: Quit over 2 years ago Family History Hypotension: Mother. Ovarian cancer..: Mother. Stroke: Negative: Mother. Health Status Family Member(s) Immunizations Vaccine Date Status tetanus/diphtheria/pertuss, acel (Tdap) 08/28/2017 Recorded Comments : 2021-09-03: Historical information-source unspecified influenza virus vaccine, inactivated 08/02/2012 Given Recommendations Health Maintenance Pending(in the next year) OverDue Breast Cancer Screening due11/20/17nd every 731day Due Adult Influenza Vaccine due05/21/24and every 1year Adult COVID-19 Vaccination due05/29/24Unknown Frequency Adult Social Determinants of Health Screening due05/29/24Unknown Frequency Cervical Cancer Screening due05/29/24and every 5year Shingles Vaccine due05/29/24One-time only Satisfied(in the past 1 year) Satisfied Body Mass Index on02/21/24.Satisfied by LAURA Davis Angela Hepatitis C Screening on08/18/23.Satisfied by [employer], [employer] Electronic Signature on File Electronically Reviewed/Signed by: Janel Vick DO Author Signature Dt/Tm:05/29/2024 11:47 AM Department of Family Medicine [facility] * DO Vick Kristen M: PERFORM Event Display: FCM Outpt Note Authored Date: [id number] Chief Complaint Preop clearance back surgery 06/02/24. History of Present Illness Pt presents for preop clearance for back surgery for L4 to S1 decompression and fusion. Physical Exam Vitals & Measurements T:35.9C HR:72(Monitored) BP:124/80 SpO2:96% WT:89.3kg WT:89.300kg(Dosing) PHQ2 Data(Data Documented on:05/29/2024 10:49) Emotional health assessment POSITIVE PHQ-9 modified for adolescents not completed G: AAAOx3, NAD H: RR normal S1/S2 no M/R/G L: CTA b/l no r/r/w HEENT: external ear canal and TM wnl, oral mucosa moist, no lymphadenopathy A: soft +bs nt nd E: no c/C/E b/l, pos distal pulses P: normal affect and insight, no homicidal/suicidal ideation Assessment/Plan 1.Pre-op exam -labs reviewed--will get US -cxr normal -coag normal -EKG no change -form completed Attestation I spent4 mintime in previsit planning including prepping note and chart review . I spent12 time in face to face interaction with patient concerning the issues that brought them in today. I spent4 min time in post visit planning including finishing note and depart process Total time spent today on patient visit20 min Problem List/Past Medical History Ongoing Acute sinus infection Acute UTI Back pain Back pain.. Chest wall pain Chronic GERD Depression Dysuria Encounter for removal of sutures Estrogen deficiency Hallux rigidus, right foot HPV - Human papillomavirus test positive HSV (herpes simplex virus) infection HSV-2 infection Hypercholesteremia Impaired glucose metabolism Left leg pain Lower back pain Lumbar radiculopathy Lumbar spondylosis Memory disturbance Menopausal state Migraine Neck pain Nephrolithiasis Neuropathy Numbness of right hand Osteopenia PE (physical exam), routine Pelvic pain Peripheral neuropathy Personal history of kidney stones Phlebitis of arm Plantar fasciitis Polyarthritis Pre-orgasmic headache Psoriatic arthritis Psoriatic arthropathy Recurrent UTI Right foot pain Shingles SI joint arthritis Skin lesion Sleep disorder THYROIDITIS Toe pain Trigger thumb Urinary tract infection UTI Vaginal dryness, menopausal Viral syndrome Weight disorder Resolved Abnormal smell Allergic reaction Breast disorder Breast pain Chest pain Confusion Elevated CK Procedure/Surgical History Trigger thumb of left hand| Service Date: 2024Lumbar epidural steroid injection| Service Date: 10/05/2022Knee meniscus structure| Service Date: holecystectomy| Service Date: 07/15/2021holecystectomy| Service Date: 1Colonoscopy| Service Date: 01/23/2021Venous doppler ultrasonography| Service Date: 12/22/2019Chest CT| Service Date: 12/22/2019Diabetic retinal eye exam| Service Date: 11/09/2019Ultrasound--biliary| Service Date: 10/05/2019Excision| Service Date: 02/23/2019Venous doppler ultrasonography| Service Date: 07/15/2018Mammogram -localization| Service Date: 11/20/2016MRI (Magnetic resonance imaging) of brain volume| Service Date: 11/19/2016breast augmentationrectocelecystoceletubal ligationovaries adhesions right arm tendon repairleft shoulder fx.ovarian cystLEEPProcedure Medications acetaminophen, 1000 mg, PRN carisoprodol(Soma 350 mg oral tablet), 350 mg= 1 tab, PO, qid citalopram(citalopram 20 mg oral tablet), 1 tab, PO, Daily cyclobenzaprine(Flexeril 10 mg oral tablet), 10 mg= 1 tab, PO, tid, PRN oxyCODONE(oxyCODONE 5 mg oral tablet), 5 mg, PO, bid pantoprazole(pantoprazole 40 mg oral delayed release tablet), See Instructions, 3 refills valACYclovir(Valtrex 1 g oral tablet), 1 g= 1 tab, PO, Daily, 3 refills Allergies LevaquinAnaphylaxis Trace Metalsrash Social History Smoking Status Never smoked cigarettes Alcohol - Denies Alcohol Use Substance Abuse - Denies Substance Abuse Tobacco - Denies Tobacco Use Use:Former smoker Type:Cigarettes - Comments: Quit over 2 years ago Family History Hypotension: Mother. Ovarian cancer..: Mother. Stroke: Negative: Mother. Health Status Family Member(s) Immunizations Vaccine Date Status tetanus/diphtheria/pertuss, acel (Tdap) 08/28/2017 Recorded Comments : 2021-09-03: Historical information-source unspecified influenza virus vaccine, inactivated 08/02/2012 Given Recommendations Health Maintenance Pending(in the next year) OverDue Breast Cancer Screening due11/20/17nd every 731day Due Adult Influenza Vaccine due05/21/24and every 1year Adult COVID-19 Vaccination due05/29/24Unknown Frequency Adult Social Determinants of Health Screening due05/29/24Unknown Frequency Cervical Cancer Screening due05/29/24and every 5year Shingles Vaccine due05/29/24One-time only Satisfied(in the past 1 year) Satisfied Body Mass Index on02/21/24.Satisfied by LAURA Davis Angela Hepatitis C Screening on08/18/23.Satisfied by [employer] Electronic Signature on File Electronically Reviewed/Signed by: Janel Vick DO Author Signature Dt/Tm:05/29/2024 11:29 AM Department of Family Medicine [facility] Patient Care team information Care Team Personnel Name: DO Smith Franklin J Position: Physician - Family Med Member Role: Lifetime Relationship Address: Address: [address] [place] [address] Name: DO Vick Kristen M Position: Physician - Family Med Member Role: Primary Care Provider Address: Address: [address] [place] [address] Name: MD Farris Dongsheng Position: Physician - Family Med Member Role: Lifetime Relationship Address: Address: [address] [place] [address] Name: JANINE Lares Shari A Position: Nurse Pract - Family Med Member Role: Lifetime Relationship Address: Address: [address] [place] [address] Care Team Related Persons Name: AMOR DAUGHERTY Address: [place] Address: home [address] [place], [place] [id number] Name: MALA DAUGHERTY Address: [place] Address: home [address] [place], [place] [id number] Name: BALA DAUGHERTY Address: [facility] [place] Address: home [address], [place] [id number] Name: BALA DAUGHERTY Address: home [address], [place] [phone] Name: BALA DAUGHERTY Address: home [address] [id number]"
[2024-06-02] MEDS: HYDROmorphone INJ 1 MG/ML SYRINGE IV PRN (22:58)
[2024-06-03] MEDS: POLYETHYLENE (MIRALAX) 17 GM PACK PO SCH (05:23)
[2024-06-03 06:14] LABS: Basophils # (auto) 0.02 K/uL (0.00-0.20); Basophils % (auto) 0.1 %; Hematocrit (blood only) 37.2 % (37.0-47.0); Hemoglobin 12.4 g/dl (12.0-16.0); Immature Granulocytes # (auto) 0.08 K/uL (0.01-0.20); Immature Granulocytes % (auto) 0.6 %; Lymphocytes # (auto) 1.68 K/uL (1.20-3.40); Lymphocytes % (auto) 11.9 %; Mean Corpuscular Hemoglobin 29.2 pg (25.0-34.0); Mean Corpuscular Hgb Conc 33.3 g/dL (32.0-36.0); Mean Corpuscular Volume 87.5 fL (80.0-100.0); Mean Platelet Volume 10.8 fL (9.4-12.4); Monocytes % (auto) 4.2 %; Neutrophils # (auto) 11.78 K/uL (1.40-6.50); Neutrophils % (auto) 83.2 %; Platelet Count 244 K/uL (130-400); RDW Coefficient of Variation 12.9 % (11.5-14.5); RDW Standard Deviation 41.1 fL (36.4-46.3); Red Blood Count 4.25 M/uL (4.20-5.40); White Blood Count 14.16 K/ul (4.8-10.8)
[2024-06-03 06:26] LABS: BUN Creatinine Ratio 10.2 (10-20); Calcium 8.8 mg/dl (8.6-10.3); Creatinine Clr Calc Pharmacy 83.5 ml/min; Est GFR (African American) 86.9 ml/min; Potassium 4.4 mmol/L (3.5-5.1)
[2024-06-03] MEDS: CITALOPRAM 20 MG TAB PO SCH (08:49)
--- NOTE | 2024-06-03 09:00 | Orthopedic Progress Note ---
Date of Service June 03, 2024 Assessment & Plan (1) Neurogenic claudication due to lumbar spinal stenosis: Plan: This time we will continue physical therapy monitor THAO output of the surgery and the next few days. Admission and Anticipated Discharge Date Admission Date: June 02, 2024 Subjective Patient's leg pain has improved. She is struggling with back spasms. Physical Exam Physical Exam: On exam she is in the bed. Discussed when to testing. Results & Data Vital Signs (Past 12 Hours) Vital Signs Temp Pulse Resp BP Pulse Ox O2 Del Method 06/03/24 07:34 36.9 C 66 16 120/69 96 Room Air 06/03/24 03:15 36.7 C 73 20 133/70 98 Room Air 06/02/24 23:03 36.7 C 55 L 18 155/66 H 96 Room Air Queries Orthopedic Spine Obesity: Yes
[2024-06-03] MEDS: LORazepam 0.5 MG in SYRINGE 0.25 ML IV PRN (09:43)
[2024-06-03] MEDS: dexAMETHasone 6 MG in SYRINGE 0 ML IV SCH (09:43)
[2024-06-03] MEDS: FAMOTIDINE 20 MG TAB PO PRN (09:51)
--- NOTE | 2024-06-03 11:15 | Hospitalist Progress Note ---
Date of Service June 03, 2024 Assessment & Plan (1) Status post lumbar spine surgery for decompression of spinal cord: Plan: Patient underwent L4-S1 decompression fusion with Dr. Seals on 06/02. Pain control, perioperative antibiotics, IV fluids, and DVT prophylaxis per the primary team EBL was listed as 450 cc Rest of care per the primary team -reviewed CBC 06/03: WBC 14.16, remainder WNL -reviewed BMP 06/03: electrolytes/kidney function stable Please reach out with any questions or concerns moving forward Medicine will continue to follow (2) Gastro-esophageal reflux disease without esophagitis: Plan: -Increased pantoprazole to 40mg twice daily. -continue prn famotidine Plan DVT prophylaxis: SCD's Diet: regular Code status: full Disposition: continued inpatient stay per primary team Admission and Anticipated Discharge Date Admission Date: June 02, 2024 Subjective Patient seen and examined this morning with family at bedside. Patient was sitting in chair at time of encounter. She states that this is the first time she has been sitting since her surgery. She has not had a BM yet. She is urinating. She reported some nausea after movement but denies any vomiting. She feels like there is a "softball" in her epigastric abdominal region. She had pepcid prior to my visit. She typically takes a PPI prior to bed at home. She denies chest pain or shortness of breath. Physical Exam 2 Constitutional: WD/WN, vitals as above Eyes: PERRL, conjunctivae normal, anicteric sclerae Respiratory: normal respiratory effort, lungs clear to auscultation Cardiovascular: RRR, no murmur, no edema Gastrointestinal (Abdomen): epigastric tenderness, + bowel sounds Psychiatric: A+Ox3, euthymic affect Results & Data Results & Data Vital Signs (Past 12 Hours) Vital Signs Temp Pulse Resp BP Pulse Ox O2 Del Method 06/03/24 07:34 36.9 C 66 16 120/69 96 Room Air 06/03/24 03:15 36.7 C 73 20 133/70 98 Room Air Laboratory Results 06/03/24 05:31 06/03/24 05:31 PG Care Time/CCT Total # of Minutes Spent Total Time Spent with Patient: Total time spent is greater than 50% in coordination of care (as documented) at patient's floor/unit and/or counseling patient: Coding Level of Care Code 18715 SUB INP/OBS CARE MIN Diagnoses Status post lumbar spine surgery for decompression of spinal cord Z98.890 Gastro-esophageal reflux disease without esophagitis K21.9
[2024-06-03] MEDS: CYCLOBENZAPRINE HCL 5 MG TAB PO PRN (14:29)
[2024-06-03] MEDS: PANTOprazole 40 MG TAB PO SCH (20:26)
[2024-06-04] MEDS: ACETAMINOPHEN 500 MG TAB PO PRN (05:58)
--- NOTE | 2024-06-04 08:33 | Orthopedic Progress Note ---
Date of Service June 04, 2024 Assessment & Plan (1) Neurogenic claudication due to lumbar spinal stenosis: Plan: Sakshi is postoperative day 2 status post L4-S1 decompression and fusion. Will continue with ambulation today. DVT prophylaxis is in the form of teds and SCDs. Continue on aggressive bowel regimen. Maintain THAO drain. Anticipate discharge home tomorrow. Admission and Anticipated Discharge Date Admission Date: June 02, 2024 Subjective Sakshi is postoperative day 2 status post L4-S1 decompression and fusion. She has some numbness along her left lower extremity but no pain. Yesterday in physical therapy ambulating 25 feet. THAO drain output last shift was 30 cc. She is passing flatus but no bowel movement. No other complaints. Review of Systems Review of Systems: All systems reviewed & are unremarkable except as noted in HPI & below Physical Exam Physical Exam: She is sitting in chair no acute distress Alert and oriented x 3 Dressing is clean dry and intact with functioning THAO drain strength intact bilateral lower extremities BERE hose intact bilateral lower extremities Results & Data Vital Signs (Past 12 Hours) Vital Signs Temp Pulse Resp BP BP Pulse Ox O2 Del Method 06/04/24 07:23 36.7 C 79 16 116/74 97 Room Air 06/03/24 22:35 Room Air 06/03/24 20:33 36.6 C 70 16 108/72 97 Room Air Queries Orthopedic Spine Obesity: Yes
--- NOTE | 2024-06-04 09:35 | Hospitalist Progress Note ---
Date of Service June 04, 2024 Assessment & Plan (1) Status post lumbar spine surgery for decompression of spinal cord: Plan: Patient underwent L4-S1 decompression fusion with Dr. Seals on 06/02. Pain control, perioperative antibiotics, IV fluids, and DVT prophylaxis per the primary team EBL was listed as 450 cc Rest of care per the primary team -reviewed CBC 06/03: WBC 14.16, remainder WNL -reviewed BMP 06/03: electrolytes/kidney function stable Please reach out with any questions or concerns moving forward (2) Gastro-esophageal reflux disease without esophagitis: Plan: -Pantoprazole to 40mg twice daily. -continue prn famotidine Plan At this time, the medical team will sign off. Please call us back with questions or concerns. DVT prophylaxis: SCD's Diet: regular Code status: full Disposition: continued inpatient stay per primary team Admission and Anticipated Discharge Date Admission Date: June 02, 2024 Subjective Patient seen and examined this morning. Patient reported abdominal discomfort at time of encounter. She believes it is because she has to have a BM. she is passing gas. She denies nausea, vomiting, chest pain, or shortness of breath. Physical Exam 2 Constitutional: WD/WN, vitals as above Eyes: PERRL, conjunctivae normal, anicteric sclerae Respiratory: normal respiratory effort, lungs clear to auscultation Cardiovascular: RRR, no murmur, no edema Skin: no rashes, warm and dry Psychiatric: A+Ox3, euthymic affect Results & Data Results & Data Vital Signs (Past 12 Hours) Vital Signs Temp Pulse Resp BP Pulse Ox O2 Del Method 06/04/24 07:23 36.7 C 79 16 116/74 97 Room Air 06/03/24 22:35 Room Air Laboratory Results 06/03/24 05:31 06/03/24 05:31 PG Care Time/CCT Total # of Minutes Spent Total Time Spent with Patient: Total time spent is greater than 50% in coordination of care (as documented) at patient's floor/unit and/or counseling patient: Coding Level of Care Code 02502 SUB INP/OBS CARE 2/35MIN Diagnoses Status post lumbar spine surgery for decompression of spinal cord Z98.890 Gastro-esophageal reflux disease without esophagitis K21.9
--- NOTE | 2024-06-05 08:58 | Discharge Summary ---
Date of Service June 05, 2024 Admission HPI Per Admitting Provider This is a 54-year-old female who presents for chronic persistent back and bilateral leg pain after failing course of nonoperative care she is here for surgical intervention. Principal Diagnosis Lumbar spinal stenosis with neurogenic claudication Discharge Data Allergies Allergy/AdvReac Type Severity Reaction Status Date / Time levofloxacin Allergy Severe ANAPHYLAXIS Verified 06/02/24 10:44 nickel Allergy Intermediate blisters, Verified 06/02/24 10:44 redness and itching CHEAP METALS Allergy Intermediate "WATERY" Uncoded 06/02/24 10:44 BLISTERS, RED RASH Consultations 06/02/24 16:10 Consult Hospitalist Routine Procedures Performed Operation Date: 06/02/24 11:45 Actual Procedures p L4-S1 Decompression and Fusion, Spinal Cord Monitoring - Ra Seals DO Ordered Studies 06/02/24 11:45 [place] lumbar spine 2-3V Routine Hospital Course (1) Neurogenic claudication due to lumbar spinal stenosis: Patient with lumbar decompression fusion trial as well as a new orthopedic for postoperative postop lesion progressed well. Marked improvement of leg and back pain. THAO drain decreasing appropriately. Excellent strength testing. Subsidy discharged home. Discharge orders instructions from chart for further review. Total Time Total Time Spent Total Time Spent (In Minutes): 20 minutes Discharge Plan Discharge Items Patient Disposition: Home - Self-Care Reason For Visit: Lumbar Region Spinal Stenosis with Radiculopathy, Discharge Diagnosis: Lumbar spinal stenosis with neurogenic claudication Activity: As commented below Non-emergency contact: Primary Care Provider Call non-emergency contact if: you have any medication questions Follow-up/Referrals: Janel Vick DO [Primary Care Provider] - Diet: Regular Addtl Attending Provider Instructions: ACTIVITY RECOMMENDATIONS: SELF CARE INSTRUCTIONS AFTER THORACIC/LUMBAR FUSIONS 1. You may walk to your tolerance. It is good exercise for your legs and back. Expect some back and intermittent leg aches and pains. 2. You may perform "counter-top" level activities (make a sandwich, coby with a project, etc.). 3. No bending or lifting of more than 10 pounds or back twisting of any nature (roll like a log when turning in bed). 4. You may ride in a car for 20-30 minutes at a time. No driving until after your first visit with your doctor. 5. Frequent changes of position and restricting sitting to 30 minutes at a time will help limit the amount of back spasms and stiffness you may experience. 6. You may discontinue the use of ambulatory aids (cane, crutches, etc.) once your strength and confidence allow. 7. You may perch machine inspector the shower and let water strike your incision when you arrive home at least once daily. Do not take a tub bath, sit in a hot tub or go into a swimming pool until after your first recheck in the office. SPECIAL CARE INSTRUCTIONS: VERY IMPORTANT TO READ AND REVIEW A. Your surgical incision has been closed with a cosmetic suture under the skin that will dissolve in about 6 weeks. In 14 days, you can use a pair of clean scissors and cut the suture that is left outside of the skin at the ends of your incision. 1. The small skin tapes can be removed 7 days after surgery if they have not fallen off by that point. 2. You may keep the wound open to air as much as possible to promote healing after post-op day number 5 unless told otherwise by your doctor. 3. If you think the wound looks like it is becoming infected (redness or worsening drainage) and/or you are experiencing fever, chill or worsening back pain and muscle spasms, contact the office so that we may evaluate you as soon as possible. B. Complications are uncommon, but please contact us if you have any signs or symptoms of: 1. wound infection (fever higher than 102.5 degrees F, redness, separation of wound, drainage, or increasing pain from the incision) 2. blood clots in legs (pain, swelling, redness and warmth in legs) 3. urinary tract infection (fever higher than 102.5 degrees F, burning upon urination or increased frequency of urination) 4. nerve problems (inability to walk on your toes or heels, numbness, loss of bowel or bladder control) 5. any other symptoms that concern you C. Please call the office at if you have any concerns or questions about your operation or recovery. D. No smoking! Smoking drastically decreases the chance of a solid fusion. E. Do not take any anti-inflammatory medications (Indocin, Advil, Motrin, Aspirin, Naprosyn, etc.) as these may inhibit the chance of a solid fusion. Tylenol is okay to take for pain. MANAGING PAIN AFTER SPINAL SURGERY 1. Narcotic medication is intended for short-term use and will be provided for surgical pain. Surgical pain usually lasts for a period of 4-6 weeks. Narcotic medication includes Percocet, Vicodin, Darvocet, Tylenol #3 or Lortab. 2. Longer-term pain is more appropriately treated with non-narcotic medication such as Tylenol ES. 3. Muscle spasm is not appropriately treated with narcotics. Muscle relaxers such as Soma, Flexeril or Skelaxin can be used along with Tylenol ES. 4. Remember that we all live with some "aches and pains". This is not unusual or uncommon after an injury or as we get older. a. Back pain is expected and may include muscle spasms for 4 to 6 weeks after surgery. The pain should gradually improve. If the pain worsens for no apparent reason, please contact the office. b. Intermittent leg pain may also be experienced and should not be concerned about unless it worsens for no apparent reason. If so, please contact the office. 5. We will provide appropriate medication within the normal guidelines of their prescribed use. We will also be very cautious and aware of potential abuse and extended duration of patients' medication needs. a. Pain medications are for your comfort and to assist with sleep and rest so that the tissue can heal. They are not provided in order to return to normal activity and should not be used through the day. To do so or worsening pain at night can result from ongoing tissue damage and development of tolerance to the prescribed medicine. 6. Please allow 2-3 days to process refills. Prescriptions will not be mailed but must be picked up at the office. FOLLOW UP VISIT: Keep your scheduled follow-up appointment. Any questions, please call the office at . Pending Studies at Discharge: No Stand-Alone Forms: My [employer], Smoking Cessation Medications and DC Order Prescriptions: New tramadol 50 mg tablet 50 mg PO Q6H PRN (Reason: pain, moderate) Qty: 30 0RF oxycodone 5 mg tablet 5 mg PO Q6H PRN (Reason: pain) Qty: 30 0RF Continued valacyclovir [Valtrex] 1 gram tablet 1,000 mg PO DAILY PRN (Reason: Cold Sores) pantoprazole [Protonix] 40 mg tablet,delayed release (DR/EC) 40 mg PO QPM citalopram [Celexa] 20 mg Tablet 20 mg PO QAM naproxen sodium [Aleve] 220 mg Tablet 220 mg PO BID PRN (Reason: Pain (Scale Score 1-3)) oxycodone 5 mg Tablet 5 mg PO Q6H PRN (Reason: Pain (Scale Score 4-6)) gabapentin 300 mg Tablet 300 mg PO TID acetaminophen [Tylenol] 325 mg Capsule 325 mg PO QID PRN (Reason: Pain (Scale Score 1-3)) Discharge Orders: Discharge Order (Routine); Ordered 06/05/24 Ordered By: Ra Seals Admission Data Admit Date/Time: 06/02/24 14:30 Attending Provider: aR Seals Admit Provider: Ra Seals Primary Care Provider: Janel Vick Other Providers: Leonel Alcantar; Mykel Huff; Angel Ivory; Israel Guardado; Ace Barger; Marlene Manjarrez; Myriam Harden; Elsie Keyes; Herber Zavala; Lavelle Smith; Glendy Amor; Jg Cárdenas; Mykel Miguel; Ry Plummer; nAa Villareal; Yulissa Castro; Yulissa Samuels; Zaida Benavidez; Govind Hughes; Nataliia Vang; Kapil Alston; Foreign Mcrae; Lola Dyer; Kitty Tomas; Kiko Stack; Dulce Murray; Angel Akins; Israel Burns; Kailee Levine; Patrizia Pagan
== END 2024-06-05 11:00 | disposition home or self-care (01) | DRG 460 ==
LOC: ASU 10:19 → 3E 14:30

== ENCOUNTER 2025-05-09 10:16 | Inpatient (IN) ==
--- NOTE | 2025-03-23 10:13 | Anesthesiology Consultation ---
Date of Service March 23, 2025 Assessment & Plan (1) Encounter for pre-operative examination: Chart Review Chart Review: Pending: Refer to Additional Notes / Consult section (pending event monitor, brain MRI and final PCP clearance ) and Patient NOT seen in Pre Admission Testing - Awaiting PCP ordered event monitor, brain MRI (03/31/25) and final PCP clearance -Infectious Disease screening: Per PAT nursing assessment on 03/22/25. No known infectious disease contacts in past 10 days or current infectious disease symptoms. No recent travel outside the country. Patient seen by PCP 03/20/25= seen for preop. Scheduled for thoracic fusion surgery. Has had increase in tremor. Only occurs when trying to do something. Seeing eye doctor for possible optic neuritis. Patient's daughter states patient has been acting paranoid. Has been forgetting names and got lost driving last week. Preop examordering Holter monitor. Intention tremorgenetic predisposition MS. Yuan disorderfollowing with him on any Icurrently being worked up for optic neuritis. Right leg painDoppler ordered. PalpitationsHolter monitor ordered. History Surgery Operation Date: 04/04/25 07:45 Proposed Procedures p T11-T12 Decompression Possible Fusion - Ra Seals, Height/Weight Height: 5 ft 6 in Weight: 83.915 kg Allergies Allergy/AdvReac Type Severity Reaction Status Date / Time levofloxacin Allergy Severe ANAPHYLAXIS Verified 03/22/25 08:52 nickel Allergy Intermediate blisters, Verified 03/22/25 08:52 redness and itching CHEAP METALS Allergy Intermediate "WATERY" Uncoded 03/22/25 08:52 BLISTERS, RED RASH Medications Home Medications Medication Instructions Recorded Confirmed Last Taken pantoprazole 40 mg tablet,delayed 40 mg PO QPM 11/24/18 03/22/25 02/18/25 release (Protonix) valacyclovir 1 gram tablet 1,000 mg PO DAILY PRN Cold Sores 05/02/21 03/22/25 02/05/25 (Valtrex) acetaminophen 325 mg capsule 325 mg PO QID PRN Pain (Scale 01/14/24 03/22/25 02/18/25 (Tylenol) Score 1-3) citalopram 20 mg tablet (Celexa) 20 mg PO QAM 01/14/24 03/22/25 02/19/25 gabapentin 300 mg tablet 300 mg PO TID 01/14/24 03/22/25 02/19/25 naproxen sodium 220 mg tablet 220 mg PO BID PRN Pain (Scale 01/14/24 03/22/25 Unknown (Aleve) Score 1-3) oxycodone 5 mg tablet 5 mg PO Q6H PRN Pain (Scale Score 01/14/24 03/22/25 02/16/25 4-6) eszopiclone 3 mg tablet 3 mg PO HS 02/19/25 03/22/25 02/18/25 Vitamin D3 1 tab PO QAM 03/22/25 03/22/25 Unknown calcium 1 tab PO DAILY 03/22/25 03/22/25 Unknown cyclobenzaprine 10 mg tablet 10 mg PO HS PRN Pain 03/22/25 03/22/25 Unknown ibuprofen 200 mg tablet 200 mg PO Q6H PRN Pain 03/22/25 03/22/25 Unknown Past Medical History Medical History (Updated 03/23/25 @ 10:54 by Paula Jon PA-C) Anxiety Arthritis Chronic low back pain Degenerative disc disease Depression GERD (gastroesophageal reflux disease) controlled, stable per pt Hx of cervical cancer LEEP, no other tx Hx of deep venous thrombosis left lower leg, 2018 after neck surgery, no further issues Hx of renal calculi Migraines hx Osteoarthritis Palpitations Per PCP record- reason for upcoming event monitor on 03/26/25; preop EKG showed marked sinus bradycardia Plantar fasciitis Temporomandibular joint disorder bilat clicks/shifts - no locking Tremor Per PCP record (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 per 03/20/25 PCP note) Past Family History Family History Mother Clotting disorder PT HAS NO DETAILS-HER MOTHER WAS ADOPTED-REMOTE FAMILY HX Cancer Father Marfan syndrome Other Stroke Past Surgical History Surgical History History of bilateral tubal ligation (~2000) History of bladder surgery tacking History of carpal tunnel release bilat History of cholecystectomy History of colonoscopy (~2022) History of hysterectomy History of laparoscopy adhesions History of loop electrical excision procedure (LEEP) History of removal of skin mole right leg, cancerous, no tx History of trigger finger Left Thumb Trigger Digit Release Hx of elbow surgery bilat Hx of fusion of cervical spine C5-6 > ROM WNL Status post lumbar spine surgery for decompression of spinal cord 05/2024 [place] Social History Smoking Status: Former smoker Smoking cigarettes per day: 1 PPD Do You Dip or Chew Tobacco: No Smoking End Date: quit 12 yrs ago Hx Alcohol Use: No Alcohol type: wine alcohol intake frequency: holidays/special occasions only Hx Substance Use: No substance use type: does not use Lab Results Anesthesia Preop Results Results Anesthesia Widget: WBC 6.55 K/ul (4.8-10.8) 03/12/25 Hgb 13.9 g/dl (12.0-16.0) 03/12/25 Hct 41.6 % (37.0-47.0) 03/12/25 Plt 261 K/uL (130-400) 03/12/25 Na 141 mmol/L (136-145) 03/12/25 K 4.2 mmol/L (3.5-5.1) 03/12/25 Cl 107 mmol/L (98-107) 03/12/25 CO2 28 mmol/L (21-32) 03/12/25 BUN 12 mg/dl (6-23) 03/12/25 Creat 0.81 mg/dl (0.6-1.2) 03/12/25 Glucose Level 88 mg/dl (70-99(Fasting)) 03/12/25 PT 9.9 Seconds (9.0-12.0) 03/12/25 PTT 26 Seconds (21-31) 03/12/25 INR 0.9 (0.9-1.1) 03/12/25 Urine Color Yellow 03/12/25 Urine Appearance Clear (Clear) 03/12/25 Urine pH 6.5 (4.5-7.5) 03/12/25 Urine Specific [place] 1.018 (1.000-1.030) 03/12/25 Urine Protein Negative (Negative) 03/12/25 Urine Glucose (UA) Negative (Negative) 03/12/25 Urine Ketones Negative (Negative) 03/12/25 Urine Blood Negative (Negative) 03/12/25 Urine Nitrite Negative (Negative) 03/12/25 Urine Bilirubin Negative (Negative) 03/12/25 Urine Urobilinogen Negative (Negative) 03/12/25 Urine Leukocyte Esterase 2+ (Negative) H 03/12/25 Urine WBC (Auto) 11-20 /hpf (0-5) H 03/12/25 Urine RBC (Auto) 0-2 /hpf (0-2) 03/12/25 Urine Hyaline Casts (Auto) 0-2 /lpf (0-2) 03/12/25 Urine Epithelial Cells (Auto) 0-2 /hpf (0-2) 03/12/25 Urine Bacteria (Auto) None Seen (None Seen) 03/12/25 Blood Type A Negative 03/12/25 Antibody Screen NEGATIVE 03/12/25 Testing Laboratory Results 03/12/25= URINE CULTURE: Gardnerella vaginalis, 50,000 CFU/ml Electrocardiogram Date: 03/21/25 Marked sinus bradycardia at 44bpm Left axis deviation Cannot rule out anterior infarct, age undetermined When compared to EKG from Jan 18, 2024- minimal criteria for anterior infarct are now present per cardio (Reviewed by PCP at clearance appt- Holter monitor ordered) Chest X-Ray Date: 11/07/24 Findings: + NAD Cervical Spine Date: 04/19/24 1. Status post C5-C6 anterior discectomy and fusion. 2. No severe central canal stenosis. Mild central canal narrowing at C7-T1, as described above. 3. Multilevel neural foraminal stenosis, as above. This is predominantly due to facet arthrosis.
[2025-05-09] MEDS ORDERED: PROPOFOL IV EMULSION 10 MG/ML 20 ML VIAL IV ONE (10:23)
[2025-05-09] MEDS ORDERED: ROCURONIUM BROMIDE 10 MG/ML 5 ML VIAL IV ONE (10:23)
[2025-05-09] MEDS ORDERED: MIDAZOLAM HCL 1 MG/ML 2ML VIAL ONE (10:23)
[2025-05-09] MEDS ORDERED: LIDOCAINE 2% 2 ML VIAL/AMP(20MG/ML) INFIL ONE (10:23)
[2025-05-09] MEDS ORDERED: GLYCOPYRROLATE 0.2 MG/ML VIAL ONE (10:23)
[2025-05-09] MEDS ORDERED: fentaNYL citrate PF 100 MCG/2 ML VIAL ONE (10:23)
[2025-05-09] MEDS ORDERED: DEXAMETHASONE SOD INJ 4 MG/ML VIAL ONE (10:23)
[2025-05-09] MEDS ORDERED: ONDANSETRON INJ 2 MG/ML 2 ML VIAL ONE (10:23)
[2025-05-09] MEDS ORDERED: SUGAMMADEX SODIUM 200 MG/2 ML VIAL IV ONE (10:24)
[2025-05-09] MEDS: LR 15ML/HR IV SCH (10:34)
[2025-05-09] MEDS: LR 60ML/HR IV SCH (10:47)
[2025-05-09] MEDS: ACETAMINOPHEN 500 MG TAB PO SCH (10:49)
[2025-05-09] MEDS: CeleBREX 200 MG CAP PO SCH (10:50)
[2025-05-09] MEDS: GABAPENTIN 900 MG DOSE PO SCH (10:50)
--- NOTE | 2025-05-09 11:05 | History & Physical Bridge Note ---
Date of Service May 09, 2025 History & Physical Bridge Note I have examined the patient, reviewed the History & Physical and in the interval since the performance of the History & Physical I have noted the following changes of clinical significance: no changes noted
--- NOTE | 2025-05-09 11:06 | History & Physical Report ---
Date of Service May 09, 2025 Assessment & Plan (1) Myelopathy concurrent with and due to spinal stenosis of thoracic region: Plan: T11-T12 decompression possible fusion History of Present Illness Chief Complaint: Back and leg pain Primary Care Provider: Janel Vick DO This is a 55-year-old female who presents with decline in status. She been diagnosed with thoracic myelopathy and is here for surgical invention. Allergies Allergy/AdvReac Type Severity Reaction Status Date / Time levofloxacin Allergy Severe ANAPHYLAXIS Verified 05/09/25 10:19 nickel Allergy Intermediate blisters, Verified 05/09/25 10:19 redness and itching CHEAP METALS Allergy Intermediate "WATERY" Uncoded 05/09/25 10:19 BLISTERS, RED RASH Home Medications Medication Instructions Recorded Confirmed Type pantoprazole 40 mg tablet,delayed 40 mg PO QAM 11/24/18 05/09/25 History release (Protonix) valacyclovir 1 gram tablet 1,000 mg PO DAILY PRN Cold Sores 05/02/21 05/09/25 History (Valtrex) acetaminophen 325 mg capsule 325 mg PO QID PRN Pain (Scale 01/14/24 05/09/25 History (Tylenol) Score 1-3) citalopram 20 mg tablet (Celexa) 20 mg PO QAM 01/14/24 05/09/25 History gabapentin 300 mg tablet 300 mg PO TID 01/14/24 05/09/25 History naproxen sodium 220 mg tablet 220 mg PO BID PRN Pain (Scale 01/14/24 05/09/25 History (Aleve) Score 1-3) oxycodone 5 mg tablet 5 mg PO Q6H PRN Pain (Scale Score 01/14/24 05/09/25 History 4-6) eszopiclone 3 mg tablet (Lunesta) 3 mg PO HS 02/19/25 05/09/25 History Vitamin D3 1 tab PO QAM 03/22/25 05/09/25 History calcium 1 tab PO DAILY 03/22/25 05/09/25 History cyclobenzaprine 10 mg tablet 10 mg PO HS PRN Pain 03/22/25 05/09/25 History ibuprofen 200 mg tablet 200 mg PO Q6H PRN Pain 03/22/25 05/09/25 History Past Med/Surg History Problem List (Updated 05/09/25 @ 11:06 by Ra Seals DO) Myelopathy concurrent with and due to spinal stenosis of thoracic region Abnormal thyroid function test TSH WNL 07/2024 Status post lumbar spine surgery for decompression of spinal cord Neurogenic claudication due to lumbar spinal stenosis Encounter for pre-operative examination Gallbladder polyp s/p stefano H/O colonoscopy Cervical cancer Skin cancer Arthritis Plantar fasciitis Gastro-esophageal reflux disease without esophagitis (Acute) Hx of neck surgery C5 and C6 fused-2018 Chronic low back pain Hx of (~1995) x3 Medical History (Updated 05/09/25 @ 11:06 by Ra Seals DO) Palpitations Per PCP record- reason for upcoming event monitor on 03/26/25; preop EKG showed marked sinus bradycardia Tremor Per PCP record (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 per 03/20/25 PCP note) Arthritis Chronic low back pain Migraines hx Plantar fasciitis GERD (gastroesophageal reflux disease) controlled, stable per pt Hx of deep venous thrombosis left lower leg, 2018 after neck surgery, no further issues Hx of cervical cancer LEEP, no other tx Hx of renal calculi Degenerative disc disease Osteoarthritis Temporomandibular joint disorder bilat clicks/shifts - no locking Depression Anxiety Surgical History Status post lumbar spine surgery for decompression of spinal cord 05/2024 [place] History of loop electrical excision procedure (LEEP) Hx of fusion of cervical spine C5-6 > ROM WNL Hx of elbow surgery bilat History of carpal tunnel release bilat History of cholecystectomy History of hysterectomy History of trigger finger Left Thumb Trigger Digit Release History of removal of skin mole right leg, cancerous, no tx History of bladder surgery tacking History of laparoscopy adhesions History of bilateral tubal ligation (~2000) History of colonoscopy (~2022) Family History Mother Clotting disorder PT HAS NO DETAILS-HER MOTHER WAS ADOPTED-REMOTE FAMILY HX Cancer Father Marfan syndrome Other Stroke Social History Smoking Status: Former smoker Tobacco Type: Cigarettes packs per day: 1; Cigarettes Per Day: 1 PPD; Smoking End Date: quit 12 yrs ago; Second Hand Exposure: No; Do You Dip or Chew Tobacco: No; Tobacco Cessation Education Requested by Patient: No Hx Alcohol Use: No Hx Substance Use: No Preferred Language: Hungarian Communication Ability: Effective Trash Collector Supervisor Required: No Beliefs That Will Affect Care: None marital status: Current Living Situation: Spouse current occupational status: 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
[2025-05-09] MEDS ORDERED: PROMETHAZINE HCL 6.25 MG in SODIUM CHLORIDE 0.9% 50 ML IV PRN (11:08)
[2025-05-09] MEDS ORDERED: ATROPINE SULFATE 0.1 MG/ML 10ML SYR IV PRN (11:08)
[2025-05-09] MEDS ORDERED: ePHEDrine sulfate 50 MG/ML AMP IV PRN (11:08)
[2025-05-09] MEDS ORDERED: KETAMINE HCL 10MG/ML SYR ONE (11:20)
[2025-05-09] MEDS: ceFAZolin 2000MG 2,000 MG/15 ML SYR IV SCH ×2 (11:20→18:13)
[2025-05-09] MEDS: BUPIVACAINE/EPINEPHRINE 0.25% 1:200,000 30 ML VIAL ONE (11:48)
--- NOTE | 2025-05-09 12:36 | Operative Report ---
Post Operative Report Pre & Post Diagnosis Operation Date: 05/09/25 11:25 Pre-Op Diagnosis: Myelopathy concurrent with and due to spinal stenosis of thoracic region Post-Op Diagnosis: Myelopathy concurrent with and due to spinal stenosis of thoracic region I identified the patient and participated in the time-out.: Yes Procedure Operation Date: 05/09/25 11:25 Actual Procedures #1 decompression with bilateral medial facetectomies T11-T12. #2 posterior spinal fusion T11-T12. #3 placement posterior instrumentation T11-T12 using Medicrea.. #4 please infuse collagen sponge, with Koros in the posterolateral gutters. #5 application of versa wrap of the exposed dura. Surgeon Ra Seals, Pharmacist'S Aide Yudith Devries Estimated Blood Loss 50 Findings Consistent with Post-Op Diagnosis Specimens None Indications This is a 55-year-old female who presents with above-mentioned diagnosis. In light of her cord compression myelopathy she is here for surgical invention. Description of Procedure Patient was met with identified informed consent obtained. Patient was then taken to the operative suite underwent ablation placed in a prone position on the Don table chest padded bolsters. All bony prominences well-padded eyes inspected to ensure no external precipice upon them. This point the thoracolumbar spine was prepped and draped in a sterile fashion. With the assistance of fluoroscopy identified the T11-T12 region. Sharp dissection with the assistance of Bovie cautery from down to and exposing this region. A complete laminectomy of T12 was then performed including bilaterally facetectomies to completely decompress the canal. Pedicle screws were then placed in T11-T12 bilaterally with assistance of fluoroscopy. Proper size rods then placed and locked in position. The transverse processes of T11-T12 were burred to subcortical bleeding bone. Infuse collagen sponge, with Koros was placed in the posterior gutters. Versa wrap placed over the exposed dura. 15 round THAO drain inserted. Incision was then closed with 1 Vicryl the fascia 2-0 Vicryl subcutaneously and 4 Monocryl for final skin closure. Steri-Strips sterile dressing placed. Patient waken taken the PACU stable condition. Please note Yudith Devries was present at the entire procedure and while the patient positioning complex portion of the surgery and final skin closure. I attest to the content of the Intraoperative Record and any orders documented therein. Any exceptions are noted below.
[2025-05-09] MEDS: FLOSEAL HEMOSTATIC MATRIX 10ML TOP ONE (12:47)
[2025-05-09] MEDS: HYDROmorphone INJ 2 MG/ML SYR/VIAL IV PRN (13:07)
--- NOTE | 2025-05-09 13:55 | Fluoroscopy Report ---
[place] thoracic spine 2V CLINICAL HISTORY: T11-12 DECOMP POSSIBLE FUSION COMPARISON STUDY: None FLUOROSCOPY TIME: 30 seconds FLUOROSCOPY IMAGES: 3 EXPOSURE DOSE: 20 mGy FINDINGS: Fluoroscopy was provided for T11-12 instrumented fusion. IMPRESSION: Intraoperative fluoroscopy. ACT 112: Negative or not required by law. Electronically signed by: Billy Miller M.D. 05/09/2025 1:53 PM
--- NOTE | 2025-05-09 14:45 | Anesthesiology Progress Note ---
Date of Service May 09, 2025 Anesthesia Post Procedure Vital Signs Vital Signs: Temp Pulse Pulse Resp BP Pulse Ox O2 Del Method 05/09/25 14:15 62 20 94/62 L 97 Nasal Cannula 05/09/25 14:00 64 17 113/67 96 Nasal Cannula 05/09/25 13:45 36.6 C 68 14 118/68 96 Nasal Cannula 05/09/25 13:35 66 13 113/67 96 Nasal Cannula 05/09/25 13:25 59 L 10 L 107/67 95 Nasal Cannula 05/09/25 13:15 60 10 L 115/69 94 Nasal Cannula 05/09/25 13:05 63 15 123/82 99 Nasal Cannula 05/09/25 12:55 66 17 140/81 100 Oxymask 05/09/25 12:45 36.0 C L 68 14 106/65 98 Oxymask 05/09/25 10:34 36.8 C 67 20 117/57 L 95 Room Air O2 Flow Rate 05/09/25 14:15 2 05/09/25 14:00 2 05/09/25 13:45 2 05/09/25 13:35 2 05/09/25 13:25 2 05/09/25 13:15 2 05/09/25 13:05 2 05/09/25 12:55 6 05/09/25 12:45 6 05/09/25 10:34 Pain Intensity Lower Back: Pain Intensity: 4 Transfer of Care Handoff Completed per policy Notes Mental Status: alert / awake / arousable and participated in evaluation Nausea / Vomiting: adequately controlled Pain: adequately controlled Airway Patency, RR, SpO2: stable & adequate BP & HR: stable & adequate Hydration State: stable & adequate Anesthetic Complications: no major complications apparent and Pt Satisfied with anesthetic care
[2025-05-09] MEDS ORDERED: ONDANSETRON 4 MG OD TAB PO PRN (15:54)
[2025-05-09] MEDS ORDERED: ACETAMINOPHEN 1,000 MG/100 ML VIAL IV PRN (15:54)
[2025-05-09] MEDS ORDERED: DO NOT ADMINISTER PNEUMOCOCCAL VACCINE PRN (15:54)
[2025-05-09] MEDS ORDERED: DO NOT ADMINISTER FLU VACCINE PRN (15:54)
[2025-05-09] MEDS ORDERED: LORazepam 0.5 MG TAB PO PRN (15:54)
[2025-05-09] MEDS ORDERED: ALUMINUM/MAGNESIUM SUSP 30 ML UDC PO PRN (15:54)
[2025-05-09] MEDS ORDERED: FAMOTIDINE 20 MG TAB PO PRN (15:54)
[2025-05-09] MEDS ORDERED: diphenhydrAMINE Capsule 25 MG CAP PO PRN (15:54)
[2025-05-09] MEDS ORDERED: LORazepam 2 MG/1 ML VIAL IV PRN (15:54)
[2025-05-09] MEDS ORDERED: HYDROmorphone INJ 0.5 MG/0.5 ML SYR IV PRN (15:54)
[2025-05-09] MEDS ORDERED: hydrOXYzine HCl 25 MG TAB PO PRN (15:54)
[2025-05-09] MEDS ORDERED: ONDANSETRON INJ 2 MG/ML 2 ML VIAL IV PRN (15:54)
[2025-05-09] MEDS ORDERED: METOCLOPRAMIDE HCL INJ 5 MG/ML 2 ML VIAL IV PRN (15:54)
[2025-05-09] MEDS ORDERED: NALOXONE HCL 0.4 MG/1 ML VIAL/CARP IV PRN (15:54)
[2025-05-09] MEDS ORDERED: MAGNESIUM HYDROXIDE SUSP 30 ML UDC PO PRN (15:54)
[2025-05-09] MEDS ORDERED: SOD PHOSPHATE/SOD BIPHOSPHATE ENEMA 132 ML BTL PR PRN (15:54)
[2025-05-09] MEDS ORDERED: PROMETHAZINE 12.5 MG/50.5 ML BAG IV PRN (15:54)
[2025-05-09] MEDS: ceFAZolin 330 MG/ML 1 GM VIAL ONE (16:06)
[2025-05-09] MEDS: oxyCODONE HCL IR 5 MG TAB (IMMEDIATE RELEASE) PO PRN (16:10)
--- NOTE | 2025-05-09 17:40 | Consultation ---
Date of Consultation May 09, 2025 Assessment & Plan (1) Myelopathy concurrent with and due to spinal stenosis of thoracic region: The patient underwent thoracic surgery earlier today, May 09, with T11-T12 decompression facetectomy, posterior fusion and instrumentation. Management per primary service, orthopedic spine, Dr. Seals (2) Gastro-esophageal reflux disease without esophagitis: Continue Protonix therapy (3) Kidney stone: Past history of nephrolithiasis. Nothing acute Plan The hospitalist service will follow and manage the medical problems. Eventual discharge to home per primary service History of Present Illness Requesting Physician: Dr. Ronak Seals Reason for Consultation: Medical management Attending Physician: Ra Seals, DO History of Present Illness 55-year-old white female with a history of spinal stenosis. She underwent T11- T12 decompression facetectomy with posterior fusion and instrumentation today by Dr. Seals. She was seen postoperatively and is somewhat somnolent but arousable in no apparent distress. Vital signs are stable. is at the bedside. The hospitalist group has been consulted for medical management postoperatively. Allergies Allergy/AdvReac Type Severity Reaction Status Date / Time levofloxacin Allergy Severe ANAPHYLAXIS Verified 05/09/25 10:19 nickel Allergy Intermediate blisters, Verified 05/09/25 10:19 redness and itching CHEAP METALS Allergy Intermediate "WATERY" Uncoded 05/09/25 10:19 BLISTERS, RED RASH Home Medications Medication Instructions Recorded Confirmed Type pantoprazole 40 mg tablet,delayed 40 mg PO QAM 11/24/18 05/09/25 History release (Protonix) valacyclovir 1 gram tablet 1,000 mg PO DAILY PRN Cold Sores 05/02/21 05/09/25 History (Valtrex) acetaminophen 325 mg capsule 325 mg PO QID PRN Pain (Scale 01/14/24 05/09/25 History (Tylenol) Score 1-3) citalopram 20 mg tablet (Celexa) 20 mg PO QAM 01/14/24 05/09/25 History gabapentin 300 mg tablet 300 mg PO TID 01/14/24 05/09/25 History naproxen sodium 220 mg tablet 220 mg PO BID PRN Pain (Scale 01/14/24 05/09/25 History (Aleve) Score 1-3) oxycodone 5 mg tablet 5 mg PO Q6H PRN Pain (Scale Score 01/14/24 05/09/25 History 4-6) eszopiclone 3 mg tablet (Lunesta) 3 mg PO HS 02/19/25 05/09/25 History Vitamin D3 1 tab PO QAM 03/22/25 05/09/25 History calcium 1 tab PO DAILY 03/22/25 05/09/25 History cyclobenzaprine 10 mg tablet 10 mg PO HS PRN Pain 03/22/25 05/09/25 History ibuprofen 200 mg tablet 200 mg PO Q6H PRN Pain 03/22/25 05/09/25 History Patient History Medical History (Updated 05/09/25 @ 11:06 by Ra Seals DO) Palpitations Per PCP record- reason for upcoming event monitor on 03/26/25; preop EKG showed marked sinus bradycardia Tremor Per PCP record (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 per 03/20/25 PCP note) Arthritis Chronic low back pain Migraines hx Plantar fasciitis GERD (gastroesophageal reflux disease) controlled, stable per pt Hx of deep venous thrombosis left lower leg, 2018 after neck surgery, no further issues Hx of cervical cancer LEEP, no other tx Hx of renal calculi Degenerative disc disease Osteoarthritis Temporomandibular joint disorder bilat clicks/shifts - no locking Depression Anxiety Surgical History Status post lumbar spine surgery for decompression of spinal cord 05/2024 [place] History of loop electrical excision procedure (LEEP) Hx of fusion of cervical spine C5-6 > ROM WNL Hx of elbow surgery bilat History of carpal tunnel release bilat History of cholecystectomy History of hysterectomy History of trigger finger Left Thumb Trigger Digit Release History of removal of skin mole right leg, cancerous, no tx History of bladder surgery tacking History of laparoscopy adhesions History of bilateral tubal ligation (~2000) History of colonoscopy (~2022) Family History Mother Clotting disorder PT HAS NO DETAILS-HER MOTHER WAS ADOPTED-REMOTE FAMILY HX Cancer Father Marfan syndrome Other Stroke Social History Smoking Status: Former smoker Tobacco Type: Cigarettes packs per day: 1; Cigarettes Per Day: 1 PPD; Smoking End Date: quit 12 yrs ago; Second Hand Exposure: No; Do You Dip or Chew Tobacco: No; Tobacco Cessation Education Requested by Patient: No Hx Alcohol Use: No Hx Substance Use: No Preferred Language: [place] Communication Ability: Effective Quality Control Assistant Required: No Beliefs That Will Affect Care: None marital status: Current Living Situation: Spouse current occupational status: 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 How many Children do You have: 5 Other Information That Helps Us Care for You: No Feels Safe at Home: Yes Safety Concerns: Feels Safe At This Time Diet: regular during the past year weight has: decreased > 10 lbs Assistive Devices: Cane, Glasses and Walker Review of Systems Review of Systems: Constitutionalno fever or chills ENTno blurred vision, no double vision, no epistaxis, no sore throat Respiratoryno cough, no wheezing, no shortness of breath Cardiacno palpitations, no chest pain, no syncope Tessa nausea, vomiting, diarrhea, melena, hematochezia GUno urinary retention, no urinary incontinence, no dysuria, no hematuria Musculoskeletalmid back discomfort postoperatively as expected Skinno bruising, no rashes, no pruritus Neurono isolated weakness, no paresthesia Psychno depression, no anxiety Physical Exam Physical Exam: General-somnolent but easily arousable. No fever HEENT-head atraumatic and normocephalic, pupils equal and reactive to light, extraocular muscles intact Neck-no lymphadenopathy or thyromegaly, trachea midline Chest-clear to auscultation. No rales, wheezing or rhonchi Cardiac-regular rate and rhythm, normal S1 and S2 Abdomen-normal bowel sounds, no hepatosplenomegaly Extremities-no cyanosis, clubbing, or edema Neuro-cranial nerves II through XII intact, no focal deficits. Psych-normal affect, normal mood Results & Data Vital Signs (Past 12 Hours) Vital Signs Temp Pulse Pulse Resp BP Pulse Ox O2 Del Method 05/09/25 15:55 36.6 C 65 16 105/65 94 Room Air 05/09/25 15:30 62 14 110/65 94 Room Air 05/09/25 15:00 62 15 108/49 L 90 Room Air 05/09/25 14:30 74 18 101/58 L 96 Nasal Cannula 05/09/25 14:15 62 20 94/62 L 97 Nasal Cannula 05/09/25 14:00 64 17 113/67 96 Nasal Cannula 05/09/25 13:45 36.6 C 68 14 118/68 96 Nasal Cannula 05/09/25 13:35 66 13 113/67 96 Nasal Cannula 05/09/25 13:25 59 L 10 L 107/67 95 Nasal Cannula 05/09/25 13:15 60 10 L 115/69 94 Nasal Cannula 05/09/25 13:05 63 15 123/82 99 Nasal Cannula 05/09/25 12:55 66 17 140/81 100 Oxymask 05/09/25 12:45 36.0 C L 68 14 106/65 98 Oxymask 05/09/25 10:34 36.8 C 67 20 117/57 L 95 Room Air O2 Flow Rate 05/09/25 15:55 05/09/25 15:30 05/09/25 15:00 05/09/25 14:30 2 05/09/25 14:15 2 05/09/25 14:00 2 05/09/25 13:45 2 05/09/25 13:35 2 05/09/25 13:25 2 05/09/25 13:15 2 05/09/25 13:05 2 05/09/25 12:55 6 05/09/25 12:45 6 05/09/25 10:34 PG Care Time/CCT Total # of Minutes Spent Total Time Spent with Patient: Total time spent is greater than 50% in coordination of care (as documented) at patient's floor/unit and/or counseling patient: Coding Level of Care Code 68750 IN/OBS CONSULT LVL 3,45M Diagnoses Myelopathy concurrent with and due to spinal stenosis of thoracic region M48.04; G99.2 Gastro-esophageal reflux disease without esophagitis K21.9 Kidney stone N20.0
[2025-05-09] MEDS: dexAMETHasone 6 MG in SYRINGE 0 ML IV SCH (18:13)
[2025-05-09] MEDS: HYDROmorphone INJ 1 MG/ML SYRINGE IV PRN (19:44)
[2025-05-09] MEDS: DOCUSATE SODIUM/SENNA 50/8.6MG TAB PO SCH (21:41)
[2025-05-09] MEDS: GABAPENTIN 300 MG CAP PO SCH (21:41)
[2025-05-10] MEDS: CYCLOBENZAPRINE HCL 10 MG TAB PO PRN (02:55)
[2025-05-10] MEDS: POLYETHYLENE (MIRALAX) 17 GM PACK PO SCH (06:14)
[2025-05-10 07:44] LABS: Basophils # (auto) 0.01 K/uL (0.00-0.20); Basophils % (auto) 0.1 %; Hematocrit (blood only) 37.6 % (37.0-47.0); Hemoglobin 12.6 g/dl (12.0-16.0); Immature Granulocytes # (auto) 0.06 K/uL (0.01-0.20); Immature Granulocytes % (auto) 0.8 %; Lymphocytes # (auto) 0.59 K/uL (1.20-3.40); Lymphocytes % (auto) 8.1 %; Mean Corpuscular Hemoglobin 29.1 pg (25.0-34.0); Mean Corpuscular Hgb Conc 33.5 g/dL (32.0-36.0); Mean Corpuscular Volume 86.8 fL (80.0-100.0); Mean Platelet Volume 10.8 fL (9.4-12.4); Monocytes # (auto) 0.17 K/uL (0.11-0.59); Monocytes % (auto) 2.3 %; Neutrophils # (auto) 6.48 K/uL (1.40-6.50); Neutrophils % (auto) 88.7 %; Platelet Count 207 K/uL (130-400); RDW Standard Deviation 41.3 fL (36.4-46.3); Red Blood Count 4.33 M/uL (4.20-5.40); White Blood Count 7.31 K/ul (4.8-10.8)
[2025-05-10 08:04] LABS: BUN Creatinine Ratio 11.4 (10-20); Calcium 9.1 mg/dl (8.6-10.3); Creatinine Clr Calc Pharmacy 89.6 ml/min; Potassium 4.3 mmol/L (3.5-5.1)
[2025-05-10] MEDS: CHOLECALCIFEROL 25 MCG (1000 UNITS) TAB PO SCH (08:04)
[2025-05-10] MEDS: PANTOprazole 40 MG TAB PO SCH (08:04)
[2025-05-10] MEDS: CITALOPRAM 20 MG TAB PO SCH (08:04)
--- NOTE | 2025-05-10 08:33 | Orthopedic Progress Note ---
Date of Service May 10, 2025 Assessment & Plan (1) Myelopathy concurrent with and due to spinal stenosis of thoracic region: Plan: Sakshi is postoperative day 1 status post T11-T12 decompression and fusion. Maintain THAO drain. DVT prophylaxis is in the form of teds and SCDs. Work on bowel regimen. She will start physical therapy today. Anticipate discharge home over the weekend Admission and Anticipated Discharge Date Admission Date: May 09, 2025 Subjective Sakshi is postoperative day 1 status post T11-T12 decompression and fusion. She had an uneventful evening. Pain is improved. THAO drain output last shift is 40 cc. H&H is morning are 12.6 and 37.5 respectively. No other complaints. Review of Systems Review of Systems: All systems reviewed & are unremarkable except as noted in HPI & below Physical Exam Physical Exam: She is laying in bed in no acute distress Alert and oriented x 3 Dressing is clean dry and intact with functioning THAO drain Strength intact bilateral lower extremities Results & Data Vital Signs (Past 12 Hours) Vital Signs Temp Pulse Pulse Resp BP Pulse Ox O2 Del Method 05/10/25 07:28 36.6 C 65 16 131/73 92 Room Air 05/10/25 02:44 36.6 C 54 L 20 151/69 H 99 Room Air 05/09/25 21:54 36.8 C 51 L 16 110/73 93 Room Air
[2025-05-10] MEDS: traMADol HCL 50 MG TABLET PO PRN (10:53)
[2025-05-10] MEDS: ACETAMINOPHEN 500 MG TAB PO PRN (10:54)
--- NOTE | 2025-05-10 12:47 | Hospitalist Progress Note ---
Date of Service May 10, 2025 Assessment & Plan (1) Myelopathy concurrent with and due to spinal stenosis of thoracic region: Plan: The patient underwent thoracic surgery on May 09, with T11-T12 decompression facetectomy, posterior fusion and instrumentation. Postoperative day #1. Management per primary service, orthopedic spine, Dr. Seals (2) Gastro-esophageal reflux disease without esophagitis: Plan: Stable continue Protonix therapy (3) Kidney stone: Plan: Past history of nephrolithiasis. Nothing acute Plan The hospitalist service will follow and manage the medical problems. Eventual discharge to home per primary service Admission and Anticipated Discharge Date Admission Date: May 09, 2025 Subjective Alert and oriented. Medically stable. Postoperative day #1 after thoracic stenosis surgery. Review of Systems 2 Review of Systems: Constitutionalno fever or chills ENTno blurred vision, no double vision, no epistaxis, no sore throat Respiratoryno cough, no wheezing, no shortness of breath Cardiacno palpitations, no chest pain, no syncope Tessa nausea, vomiting, diarrhea, melena, hematochezia GUno urinary retention, no urinary incontinence, no dysuria, no hematuria Musculoskeletalmid back discomfort postoperatively as expected Skinno bruising, no rashes, no pruritus Neurono isolated weakness, no paresthesia Psychno depression, no anxiety Physical Exam 2 Physical Exam: General-somnolent but easily arousable. No fever HEENT-head atraumatic and normocephalic, pupils equal and reactive to light, extraocular muscles intact Neck-no lymphadenopathy or thyromegaly, trachea midline Chest-clear to auscultation. No rales, wheezing or rhonchi Cardiac-regular rate and rhythm, normal S1 and S2 Abdomen-normal bowel sounds, no hepatosplenomegaly Extremities-no cyanosis, clubbing, or edema Neuro-cranial nerves II through XII intact, no focal deficits. Psych-normal affect, normal mood Results & Data Results & Data Vital Signs (Past 12 Hours) Vital Signs Temp Pulse Pulse Resp BP Pulse Ox O2 Del Method 05/10/25 11:00 36.7 C 68 18 128/75 98 Room Air 05/10/25 07:28 36.6 C 65 16 131/73 92 Room Air 05/10/25 02:44 36.6 C 54 L 20 151/69 H 99 Room Air Laboratory Results 05/10/25 06:51 05/10/25 06:51 PG Care Time/CCT Total # of Minutes Spent Total Time Spent with Patient: Total time spent is greater than 50% in coordination of care (as documented) at patient's floor/unit and/or counseling patient: Coding Level of Care Code 29327 SUB INP/OBS CARE 2/35MIN Diagnoses Myelopathy concurrent with and due to spinal stenosis of thoracic region M48.04; G99.2 Gastro-esophageal reflux disease without esophagitis K21.9 Kidney stone N20.0
[2025-05-10] MEDS: bisacodyL 10 MG SUPP PR PRN (14:17)
--- NOTE | 2025-05-11 10:13 | Orthopedic Progress Note ---
Date of Service May 11, 2025 Assessment & Plan (1) Myelopathy concurrent with and due to spinal stenosis of thoracic region: Plan: Today we will continue physical therapy encourage incentive spirometry and plan for discharge home tomorrow. Admission and Anticipated Discharge Date Admission Date: May 09, 2025 Subjective Back pain improving. Using her incentive spirometry. She is having some congestion in her chest. Leg symptoms improved. Physical Exam Physical Exam: Patient is currently bed. She appears comfortable. To testing. Results & Data Vital Signs (Past 12 Hours) Vital Signs Temp Pulse Resp BP Pulse Ox O2 Del Method 05/11/25 08:13 36.6 C 63 16 117/72 96 Room Air 05/11/25 07:50 Room Air
[2025-05-11] MEDS: guaiFENesin/DEXTROM SYRUP 100MG/10MG 5ML UDC PO ONE (10:14)
[2025-05-11] MEDS: AMOXICILLIN/CLAVULANATE 875 MG TAB PO SCH (10:14)
--- NOTE | 2025-05-11 11:21 | Hospitalist Progress Note ---
Date of Service May 11, 2025 Assessment & Plan (1) Acute bronchitis: Plan: Obtain sputum culture if sputum is produced. Augmentin has been started along with Mucinex. Maya ordered on a scheduled basis for her wheezing. Would eventually discharge on continued Augmentin for 5 to 7 days (2) Myelopathy concurrent with and due to spinal stenosis of thoracic region: Plan: The patient underwent thoracic surgery on May 09, with T11-T12 decompression facetectomy, posterior fusion and instrumentation. Postoperative day #2. Management per primary service, orthopedic spine, Dr. Seals (3) Gastro-esophageal reflux disease without esophagitis: Plan: Stable continue Protonix therapy (4) Kidney stone: Plan: Past history of nephrolithiasis. Nothing acute Plan The hospitalist service will follow and manage the medical problems. Eventual discharge to home per primary service Admission and Anticipated Discharge Date Admission Date: May 09, 2025 Subjective The patient has developed symptoms of acute bronchitis with coughing which has caused back and chest discomfort. She has some wheezing noted on examination. She has been started on oral Augmentin therapy and DuoNebs postoperative day #2 after surgical intervention for thoracic spine stenosis. Review of Systems 2 Review of Systems: Constitutionalno fever or chills ENTno blurred vision, no double vision, no epistaxis, no sore throat Respiratorynonproductive cough. No hemoptysis. No pleuritic pain Cardiacno palpitations, no syncope. Chest discomfort associated with coughing Tessa nausea, vomiting, diarrhea, melena, hematochezia GUno urinary retention, no urinary incontinence, no dysuria, no hematuria Musculoskeletalmid back discomfort postoperatively as expected which has been aggravated by her coughing episodes Skinno bruising, no rashes, no pruritus Neurono isolated weakness, no paresthesia Psychno depression, no anxiety Physical Exam 2 Physical Exam: General-somnolent but easily arousable. No fever HEENT-head atraumatic and normocephalic, pupils equal and reactive to light, extraocular muscles intact Neck-no lymphadenopathy or thyromegaly, trachea midline Chest- Rhonchi. Faint bilateral end expiratory wheezes. No inspiratory rales. No dullness to percussion Cardiac-regular rate and rhythm, normal S1 and S2 Abdomen-normal bowel sounds, no hepatosplenomegaly Extremities-no cyanosis, clubbing, or edema Neuro-cranial nerves II through XII intact, no focal deficits. Psych-normal affect, normal mood Results & Data Results & Data Vital Signs (Past 12 Hours) Vital Signs Temp Pulse Resp BP Pulse Ox O2 Del Method 05/11/25 08:13 36.6 C 63 16 117/72 96 Room Air 05/11/25 07:50 Room Air Laboratory Results 05/10/25 06:51 05/10/25 06:51 PG Care Time/CCT Total # of Minutes Spent Total Time Spent with Patient: Total time spent is greater than 50% in coordination of care (as documented) at patient's floor/unit and/or counseling patient: Coding Level of Care Code 46198 SUB INP/OBS CARE 3/50MIN Diagnoses Acute bronchitis J20.9 Myelopathy concurrent with and due to spinal stenosis of thoracic region M48.04; G99.2 Gastro-esophageal reflux disease without esophagitis K21.9 Kidney stone N20.0
[2025-05-11] MEDS: ALBUT/IPRATROP 3MG/0.5MG NEB 3 ML VIAL NEB SCH (11:39)
[2025-05-12 07:02] VITALS: RESP 18
[2025-05-12 07:31] VITALS: TEMP 97.9
--- NOTE | 2025-05-12 10:45 | Discharge Summary ---
Date of Service May 12, 2025 Admission HPI Per Admitting Provider This is a 55-year-old female who presents with decline in status. She been diagnosed with thoracic myelopathy and is here for surgical invention. Principal Diagnosis Thoracic spinal stenosis with myeloradiculopathy Discharge Data Allergies Allergy/AdvReac Type Severity Reaction Status Date / Time levofloxacin Allergy Severe ANAPHYLAXIS Verified 05/09/25 10:19 nickel Allergy Intermediate blisters, Verified 05/09/25 10:19 redness and itching CHEAP METALS Allergy Intermediate "WATERY" Uncoded 05/09/25 10:19 BLISTERS, RED RASH Consultations 05/09/25 15:54 Consult Hospitalist Routine Procedures Performed Operation Date: 05/09/25 11:25 Actual Procedures p T11-T12 Decompression and Fusion(Not Applicable) - Ra Seals DO Ordered Studies 05/09/25 11:25 FL thoracic spine 2V Routine Hospital Course (1) Myelopathy concurrent with and due to spinal stenosis of thoracic region: Patient underwent thoracic decompression fusion tolerated this well was taken orthopedic for postoperative care postoperatively she progressed appropriately. THAO drain decreasing. Extra strength testing. Pain controlled. Separately discharged home. Discharge orders and instructions from the chart for further review. Total Time Total Time Spent Total Time Spent (In Minutes): 20 minutes Discharge Plan Discharge Items Patient Disposition: Home - Self-Care Reason For Visit: Herniation Intervetebral Disc Thoracic Spine Discharge Diagnosis: thoracic myelopathy Activity: As commented below Non-emergency contact: Primary Care Provider Call non-emergency contact if: you have any medication questions Follow-up/Referrals: Janel Vick DO [Primary Care Provider] - Diet: Regular Addtl Attending Provider Instructions: ACTIVITY RECOMMENDATIONS: SELF CARE INSTRUCTIONS AFTER THORACIC/LUMBAR FUSIONS 1. You may walk to your tolerance. It is good exercise for your legs and back. Expect some back and intermittent leg aches and pains. 2. You may perform "counter-top" level activities (make a sandwich, coby with a project, etc.). 3. No bending or lifting of more than 10 pounds or back twisting of any nature (roll like a log when turning in bed). 4. You may ride in a car for 20-30 minutes at a time. No driving until after your first visit with your doctor. 5. Frequent changes of position and restricting sitting to 30 minutes at a time will help limit the amount of back spasms and stiffness you may experience. 6. You may discontinue the use of ambulatory aids (cane, crutches, etc.) once your strength and confidence allow. 7. You may check processing clerk the shower and let water strike your incision when you arrive home at least once daily. Do not take a tub bath, sit in a hot tub or go into a swimming pool until after your first recheck in the office. 8. You may resume previous diet. SPECIAL CARE INSTRUCTIONS: VERY IMPORTANT TO READ AND REVIEW A. Your surgical incision has been closed with a cosmetic suture under the skin that will dissolve in about 6 weeks. In 14 days, you can use a pair of clean scissors and cut the suture that is left outside of the skin at the ends of your incision. 1. The small skin tapes can be removed 7 days after surgery if they have not fallen off by that point. 2. You may keep the wound open to air as much as possible to promote healing after post-op day number 5 unless told otherwise by your doctor. 3. If you think the wound looks like it is becoming infected (redness or worsening drainage) and/or you are experiencing fever, chill or worsening back pain and muscle spasms, contact the office so that we may evaluate you as soon as possible. B. Complications are uncommon, but please contact us if you have any signs or symptoms of: 1. wound infection (fever higher than 102.5 degrees F, redness, separation of wound, drainage, or increasing pain from the incision) 2. blood clots in legs (pain, swelling, redness and warmth in legs) 3. urinary tract infection (fever higher than 102.5 degrees F, burning upon urination or increased frequency of urination) 4. nerve problems (inability to walk on your toes or heels, numbness, loss of bowel or bladder control) 5. any other symptoms that concern you C. Please call the office at if you have any concerns or questions about your operation or recovery. D. No smoking! Smoking drastically decreases the chance of a solid fusion. E. Do not take any anti-inflammatory medications (Indocin, Advil, Motrin, Aspirin, Naprosyn, etc.) as these may inhibit the chance of a solid fusion. Tylenol is okay to take for pain. MANAGING PAIN AFTER SPINAL SURGERY 1. Narcotic medication is intended for short-term use and will be provided for surgical pain. Surgical pain usually lasts for a period of 4-6 weeks. Narcotic medication includes Percocet, Vicodin, Darvocet, Tylenol #3 or Lortab. 2. Longer-term pain is more appropriately treated with non-narcotic medication such as Tylenol ES. 3. Muscle spasm is not appropriately treated with narcotics. Muscle relaxers such as Soma, Flexeril or Skelaxin can be used along with Tylenol ES. 4. Remember that we all live with some "aches and pains". This is not unusual or uncommon after an injury or as we get older. a. Back pain is expected and may include muscle spasms for 4 to 6 weeks after surgery. The pain should gradually improve. If the pain worsens for no apparent reason, please contact the office. b. Intermittent leg pain may also be experienced and should not be concerned about unless it worsens for no apparent reason. If so, please contact the office. 5. We will provide appropriate medication within the normal guidelines of their prescribed use. We will also be very cautious and aware of potential abuse and extended duration of patients' medication needs. a. Pain medications are for your comfort and to assist with sleep and rest so that the tissue can heal. They are not provided in order to return to normal activity and should not be used through the day. To do so or worsening pain at night can result from ongoing tissue damage and development of tolerance to the prescribed medicine. 6. Please allow 2-3 days to process refills. Prescriptions will not be mailed but must be picked up at the office. FOLLOW UP VISIT: Keep your scheduled follow-up appointment. Any questions, please call the office at . Pending Studies at Discharge: No Stand-Alone Forms: My [employer], Smoking Cessation Medications and DC Order Prescriptions: New tramadol 50 mg tablet 50 mg PO Q6H PRN (Reason: pain, moderate) Qty: 30 0RF oxycodone 5 mg tablet 5 mg PO Q6H PRN (Reason: pain) Qty: 30 0RF Continued valacyclovir [Valtrex] 1 gram tablet 1,000 mg PO DAILY PRN (Reason: Cold Sores) pantoprazole [Protonix] 40 mg tablet,delayed release (DR/EC) 40 mg PO QAM citalopram [Celexa] 20 mg Tablet 20 mg PO QAM oxycodone 5 mg Tablet 5 mg PO Q6H PRN (Reason: Pain (Scale Score 4-6)) gabapentin 300 mg Tablet 300 mg PO TID acetaminophen [Tylenol] 325 mg Capsule 325 mg PO QID PRN (Reason: Pain (Scale Score 1-3)) eszopiclone [Lunesta] 3 mg tablet 3 mg PO HS cyclobenzaprine [Flexeril] 10 mg Tablet 10 mg PO HS PRN (Reason: Pain) Vitamin D3 1 tab PO QAM calcium 1 tab PO DAILY Discontinued naproxen sodium [Aleve] 220 mg Tablet 220 mg PO BID PRN (Reason: Pain (Scale Score 1-3)) ibuprofen 200 mg Tablet 200 mg PO Q6H PRN (Reason: Pain) Discharge Orders: Discharge Order (Routine); Ordered 05/12/25 Ordered By: Ra Seals Admission Data Admit Date/Time: 05/09/25 12:40 Attending Provider: Ra Seals Admit Provider: Ra Seals Primary Care Provider: Janel Vick Other Providers: Keisha Francis
[2025-05-12 11:05] VITALS: O2SAT 96
--- NOTE | 2025-05-12 11:10 | Hospitalist Progress Note ---
Date of Service May 12, 2025 Assessment & Plan (1) Acute bronchitis: Plan: Improved. Continue Augmentin for 1 week at discharge. DuoNebs ordered on a scheduled basis for her wheezing while hospitalized. (2) Myelopathy concurrent with and due to spinal stenosis of thoracic region: Plan: The patient underwent thoracic surgery on May 09, with T11-T12 decompression facetectomy, posterior fusion and instrumentation. Postoperative day #3. Management per primary service, orthopedic spine, Dr. Seals (3) Gastro-esophageal reflux disease without esophagitis: Plan: Stable continue Protonix therapy (4) Kidney stone: Plan: Past history of nephrolithiasis. Nothing acute Plan The hospitalist service will follow and manage the medical problems. Anticipate discharge to home today, May 12, by primary service Admission and Anticipated Discharge Date Admission Date: May 09, 2025 Subjective She looks and feels better. She will be discharged to home by the primary service today, May 12. Continue Augmentin twice daily for 1 additional week. Her bronchitis symptoms are expected to resolve. Postoperative day #3 after posterior fusion at the T11-T12 level. Review of Systems 2 Review of Systems: Constitutionalno fever or chills ENTno blurred vision, no double vision, no epistaxis, no sore throat Respiratorynonproductive cough. No hemoptysis. No pleuritic pain Cardiacno palpitations, no syncope. Chest discomfort associated with coughing Tessa nausea, vomiting, diarrhea, melena, hematochezia GUno urinary retention, no urinary incontinence, no dysuria, no hematuria Musculoskeletalmid back discomfort postoperatively as expected which has been aggravated by her coughing episodes Skinno bruising, no rashes, no pruritus Neurono isolated weakness, no paresthesia Psychno depression, no anxiety Physical Exam 2 Physical Exam: General-somnolent but easily arousable. No fever HEENT-head atraumatic and normocephalic, pupils equal and reactive to light, extraocular muscles intact Neck-no lymphadenopathy or thyromegaly, trachea midline Chest- Rhonchi. Faint bilateral end expiratory wheezes. No inspiratory rales. No dullness to percussion Cardiac-regular rate and rhythm, normal S1 and S2 Abdomen-normal bowel sounds, no hepatosplenomegaly Extremities-no cyanosis, clubbing, or edema Neuro-cranial nerves II through XII intact, no focal deficits. Psych-normal affect, normal mood Results & Data Results & Data Vital Signs (Past 12 Hours) Vital Signs Temp Pulse Resp BP Pulse Ox O2 Del Method 05/12/25 11:04 67 18 96 Room Air 05/12/25 07:30 36.6 C 84 18 122/69 92 Room Air 05/12/25 07:15 Room Air 05/12/25 07:02 70 18 95 Room Air Laboratory Results 05/10/25 06:51 05/10/25 06:51 PG Care Time/CCT Total # of Minutes Spent Total Time Spent with Patient: Total time spent is greater than 50% in coordination of care (as documented) at patient's floor/unit and/or counseling patient: Coding Level of Care Code 33793 SUB INP/OBS CARE 2/35MIN Diagnoses Acute bronchitis J20.9 Myelopathy concurrent with and due to spinal stenosis of thoracic region M48.04; G99.2 Gastro-esophageal reflux disease without esophagitis K21.9 Kidney stone N20.0
[2025-05-12 12:32] VITALS: BP 144/82; PULSE 78
== END 2025-05-12 12:50 | disposition home or self-care (01) | DRG 451 ==
LOC: ASU 10:16 → PACUINP 12:40 → 3E 15:53